=== PATIENT | male | born 1960 | race Caucasian/White ===

== ENCOUNTER 2017-12-22 07:41 | Inpatient (IN) | payer OTHER ==
[~2017-12-22] VITALS: Ht 170.2 cm; Wt 115.8 kg
[2017-12-22] VITALS (15 sets, daily range): BP systolic 105–228; BP diastolic 52–153; PULSE 86–130; RESP 16–38; TEMP 98.1–98.8; O2SAT 94–99
[~2017-12-22 07:41] MED LIST: BP MED; IBUP600T26 PO; LORTA5 PO
--- NOTE | 2017-12-22 07:56 | PD ---
HPI Chief Complaint: Numbness/Tingling Time Seen by Provider: 07:50 Travel History International Travel<30 days: No Contact w/Intl Traveler<30days: No History of Present Illness HPI 57yo M with PMH of HTN and HLD presents to the ED with c/o left lower extremity weakness and left arm and leg numbness since 7am today. Said he woke up to go to the bathroom at 5am and everything was normal. He then woke up at 7am and had the symptoms. Denies any fever, chest pain, sob, n/v, abdominal pain, previous stroke. PFSH Past Medical History Diminished Hearing: No Hypertension: Yes Ulcer: Yes Past Surgical History Cholecystectomy: Yes Tonsillectomy: Yes Other Surgery: Yes (CYST REMOVED FROM BACK) Social History Alcohol Use: No Tobacco Use: No Substance Use: No Allergies-Medications (Allergen,Severity, Reaction): Coded Allergies: No Known Allergies (Verified Allergy, Unknown, 12/22/17) Reported Meds & Prescriptions Reported Meds & Active Scripts Active Reported Losartan-Hydrochlorothiazide 100-25 Mg Tab 1 Tab PO DAILY Simvastatin 80 Mg Tab 80 Mg PO DAILY Ventolin Hfa 18 GM Inh (Albuterol Sulfate) 90 Mcg/Act Aer 2 Puff INH Q4-6H PRN Advair Diskus Inh (Fluticasone-Salmeterol Inh) 250-50 Mcg/Blist Aer 1 Puff INH BID Rinse mouth after use. Clonidine (Clonidine HCl) 0.1 Mg Tab 0.1 Mg PO BID Fenofibrate 160 Mg Tab 160 Mg PO DAILY Atenolol 100 Mg Tab 100 Mg PO DAILY Review of Systems Except as stated in HPI: all other systems reviewed are Neg Physical Exam Narrative GENERAL: 57yo M in mild distress. SKIN: Focused skin assessment warm/dry. HEAD: Atraumatic. Normocephalic. EYES: Pupils equal and round. No scleral icterus. No injection or drainage. ENT: No nasal bleeding or discharge. Mucous membranes pink and moist. NECK: Trachea midline. No JVD. CARDIOVASCULAR: Regular rate and rhythm. No murmur appreciated. RESPIRATORY: No accessory muscle use. Clear to auscultation. Breath sounds equal bilaterally. GASTROINTESTINAL: Abdomen soft, non-tender, nondistended. MUSCULOSKELETAL: No obvious deformities. No clubbing. No cyanosis. No edema. NEUROLOGICAL: Awake and alert. No obvious cranial nerve deficits. +Drift left lower extremity. +Decreased sensation in left upper and lower extremity. + Ataxia in left limb. NIH stroke scale of 3. PSYCHIATRIC: Appropriate mood and affect; insight and judgment normal. Data Data Last Documented VS Vital Signs Date Time Temp Pulse Resp B/P (MAP) Pulse Ox O2 Delivery O2 Flow Rate FiO2 12/22/17 08:25 119 16 199/107 (137) 98 Room Air 12/22/17 08:[address] Brain W/O Iv Contrast(Rout) (12/22/17 ) Prothrombin Time / Inr (Pt) (12/22/17 07:50) Act Partial Throm Time (Ptt) (12/22/17 07:50) Complete Blood Count With Diff (12/22/17 07:50) Basic Metabolic Panel (Bmp) (12/22/17 07:50) Blood Glucose (12/22/17 07:50) Nicardipine Inj (Cardene Inj) (12/22/17 08:00) Admit Order (Ed Use Only) (12/22/17 08:28) Consult Neurosurgery (12/22/17 ) Levetiracetam Inj (Keppra Inj) (12/22/17 08:30) Labs Laboratory Tests Test 12/22/17 07:50 12/22/17 07:58 White Blood Count 6.8 TH/MM3 Red Blood Count 4.95 MIL/MM3 Hemoglobin 14.7 GM/DL Hematocrit 44.4 % Mean Corpuscular Volume 89.7 FL Mean Corpuscular Hemoglobin 29.7 PG Mean Corpuscular Hemoglobin Concent 33.1 % Red Cell Distribution Width 11.4 % Platelet Count 298 TH/MM3 Mean Platelet Volume 8.8 FL Neutrophils (%) (Auto) 55.5 % Lymphocytes (%) (Auto) 26.4 % Monocytes (%) (Auto) 12.8 % Eosinophils (%) (Auto) 4.6 % Basophils (%) (Auto) 0.7 % Neutrophils # (Auto) 3.8 TH/MM3 Lymphocytes # (Auto) 1.8 TH/MM3 Monocytes # (Auto) 0.9 TH/MM3 Eosinophils # (Auto) 0.3 TH/MM3 Basophils # (Auto) 0.0 TH/MM3 CBC Comment DIFF FINAL Differential Comment Prothrombin Time 10.1 SEC Prothromb Time International Ratio 1.0 RATIO Activated Partial Thromboplast Time 22.2 SEC Blood Urea Nitrogen 13 MG/DL Creatinine 1.00 MG/DL Random Glucose 103 MG/DL Calcium Level 9.3 MG/DL Sodium Level 138 MEQ/L Potassium Level 4.0 MEQ/L Chloride Level 103 MEQ/L Carbon Dioxide Level 28.1 MEQ/L Anion Gap 7 MEQ/L Estimat Glomerular Filtration Rate 77 ML/MIN Troponin I LESS THAN 0.02 NG/ML Ethyl Alcohol Level LESS THAN 3 MG/DL MDM Medical Decision Making Medical Screen Exam Complete: Yes Emergency Medical Condition: Yes Differential Diagnosis Stroke alert vs. hypertensive emergency vs. ICH Narrative Course 57yo M with left leg weakness and left arm and leg numbness. Last normal at 5am. Stroke alert was called. Pt's blood pressure is markedly elevated. Nicardipine drip ordered. CT brain showed small area of low attenuation in the right parietal lobe may be acute infarction with focal 6mm area of hemorrhage. No significant mass effect or midline shift. Labs reviewed, no leukocytosis. BMP unremarkable. I discussed with neurologist Dr. Oh and agree that TPA is contraindicated since pt has hemorrhage. Recommend MRI and MRA as well as admit to ICU. Neurosurgeon was call but Dr. Franks is currently in surgery. Consult place. I did give pt keppra for seizure prophylaxis. Discussed with Dr. Lynn who recommends transferring pt to [facility]. Critical Care Narrative Aggregate critical care time was 50 minutes. Time to perform other separately billable procedures was not included in the critical care time. My time did not include minutes spent treating any other patients simultaneously or on activities that did not directly contribute to the patient's treatment. The services I provided to this patient were to treat and/or prevent clinically significant deterioration that could result in: cardiovascular collapse or . I provided critical care services requiring my management, as noted below: Chart data review, documentation time, medication orders and management, vital sign assessments/reviewing monitor data, ordering and reviewing lab tests, ordering and interpreting/reviewing x-rays and diagnostic studies, care of the patient and discussion of the patient with the admitting physicians. Diagnosis Primary Impression: ICH (intracerebral hemorrhage) Qualified Codes: I61.9 - Nontraumatic intracerebral hemorrhage, unspecified Admitting Information Admitting Physician Requests: Admit Noemy العلي DO Dec 22, 2017 07:56
[2017-12-22 08:00] LABS: AUTOMATED NEUTROPHIL # 3.8 TH/MM3 (1.8-7.7); BASOPHIL % 0.7 % (0.0-2.0); EOSINOPHIL # 0.3 TH/MM3 (0-0.4); EOSINOPHIL % 4.6 % (0.0-4.0); HEMATOCRIT 44.4 % (39.0-51.0); HEMOGLOBIN 14.7 GM/DL (13.0-17.0); LYMPH % 26.4 % (9.0-44.0); LYMPHOCYTE # 1.8 TH/MM3 (1.0-4.8); MEAN CELL VOLUME 89.7 FL (80.0-100.0); MEAN CORPUSCULAR HEMOGLOBIN 29.7 PG (27.0-34.0); MEAN CORPUSCULAR HGB CONC 33.1 % (32.0-36.0); MEAN PLATELET VOLUME 8.8 FL (7.0-11.0); MONO % 12.8 % (0.0-8.0); MONOCYTE # 0.9 TH/MM3 (0-0.9); NEUT % 55.5 % (16.0-70.0); PLATELET COUNT 298 TH/MM3 (150-450); RED BLOOD COUNT 4.95 MIL/MM3 (4.50-5.90); RED CELL DISTRIBUTION WIDTH 11.4 % (11.6-17.2); WHITE BLOOD COUNT 6.8 TH/MM3 (4.0-11.0)
[2017-12-22] MEDS ORDERED: niCARdipine INJ 25 MG in SODIUM CHLOR 0.9% 250 ML INJ 240 ML IV ONE (08:00)
--- NOTE | 2017-12-22 08:06 | RADRPT ---
EXAM DATE/TIME: 12/22/2017 07:52 [facility] COMPARISON: No previous studies available for comparison. INDICATIONS : Stroke alert. Left upper and lower extremity numbness since this morning. RADIATION DOSE: 59.65 CTDIvol (mGy) This report was called by Annie to العلي at 8: 03am MEDICAL HISTORY : None SURGICAL HISTORY : None. ENCOUNTER: Initial ACUITY: 1 day PAIN SCALE: 0/10 LOCATION: Bilateral cranial TECHNIQUE: Multiple contiguous axial images were obtained of the head. Using automated exposure control and adj ustment of the mA and/or kV according to patient size, radiation dose was kept as low as reasonably a chievable to obtain optimal diagnostic quality images. DICOM format image data is available electro nically for review and comparison. FINDINGS: CEREBRUM: There is a small area of low attenuation in the right parietal lobe with a small punctate area of hem orrhage measuring 6 mm. No significant mass effect or midline shift. The ventricles are normal for ag e. No evidence of midline shift or mass lesion. No extra-axial fluid collections are seen. POSTERIOR FOSSA: The cerebellum and brainstem are intact. The 4th ventricle is midline. The cerebellopontine angle i s unremarkable. EXTRACRANIAL: The visualized portion of the orbits is intact. SKULL: The calvaria is intact. No evidence of skull fracture. CONCLUSION: Small area of low attenuation in the right parietal lobe may be acute infarction with focal 6 mm area of hemorrhage. No significant mass effect or midline shift. Russel Valencia MD on December 22, 2017 at 8:01 Board Certified Radiologist. This report was verified electronically.
[2017-12-22 08:09] LABS: CALCIUM 9.3 MG/DL (8.5-10.1)
[2017-12-22 08:10] LABS: BICARBONATE 28.1 MEQ/L (21.0-32.0)
[2017-12-22 08:12] LABS: PROTHROMBIN TIME - PATIENT 10.1 SEC (9.8-11.6)
[2017-12-22] MEDS ORDERED: SODIUM CHLORIDE 0.9% FLUSH 10 ML FLUSH IV FLUSH PRN (08:30)
[2017-12-22] MEDS ORDERED: CHLORHEXIDINE GLUCONATE 2 % 1 PACK (2 CLOTHS) TOP PRN (08:30)
[2017-12-22] MEDS ORDERED: ONDANSETRON HCL 4 MG/2 ML VIAL IV PUSH PRN (08:30)
[2017-12-22] MEDS ORDERED: BISACODYL 10 MG SUPP RECTAL PRN (08:30)
[2017-12-22] MEDS ORDERED: MAGNESIUM HYDROXIDE SUSP 30 ML CUP PO PRN (08:30)
[2017-12-22] MEDS ORDERED: LACTULOSE SYRUP 20 GM/30 ML CUP PO PRN (08:30)
[2017-12-22] MEDS ORDERED: ACETAMINOPHEN 325 MG TAB PO PRN (08:30)
[2017-12-22] MEDS ORDERED: MISCELLANEOUS NURSING INFORMATION XX SCH (08:30)
[2017-12-22] MEDS ORDERED: RESP: ALBUTEROL 2.5 MG/IPRATROPIUM 0.5 MG NEB (PRN) INH (08:30)
[2017-12-22] MEDS ORDERED: SENNOSIDES 8.6 MG TAB PO PRN (08:30)
[2017-12-22] MEDS ORDERED: levETIRAcetam INJ 100 ML IV ONE (08:30)
[2017-12-22] MEDS ORDERED: DEXTROSE 50% IN WATER 50 ML VIAL(D50) IV PUSH PRN (09:15)
[2017-12-22] MEDS ORDERED: GLUCAGON 1 MG/ML VIAL OTHER PRN (09:15)
--- NOTE | 2017-12-22 09:16 | PD.CONS ---
HPI Service neurosurgery Consult Requested By Dr Lynn Reason for Consult ICH Primary Care Physician Jame Connor MD History of Present Illness This is a 57 yo male with history of arterial hypertension that presented to [facility] with difficulty with ambulation and left-sided weakness . He also has history of hyperlipidemia. He reports that he woke up to go to the bathroom at 5am and everything was normal. He then woke up at 7am and had left- sided weakness He has a past medical history of hypertension for approximately 10 years, patient on multiple antihypertensive meds available report from - Clonidine , and other meds which he ran out of and did not refill. In addition he takes Losartan and Simvastatin. The patient relates that he took his losartan at approximately 5 AM. He was very hypertensive this morning, with a BP of 228/153 , and was started on a Nicardipine infusion. CT brain noted acute infarction with a 6 mm focal area of hemorrhage without midline shift or mass effect right parietal lobe area. Dr. Oh was notified per ED physician Dr. العلي, Debrara bolus was initiated for seizure prophylaxis. He denies any nauseous or vomiting. No seizure activity. No tongue biting. No incontinence of stool or urine. No tonic-clonic movement seen. Neurosurgical consultation was requested Review of Systems Constitutional: DENIES: Diaphoretic episodes, Fatigue, Fever, Weight gain, Weight loss, Chills, Dizziness, Change in appetite, Night Sweats Endocrine: DENIES: Heat/cold intolerance, Polydipsia, Polyuria, Polyphagia Eyes: DENIES: Blurred vision, Diplopia, Eye inflammation, Eye pain, Vision loss , Photosensitivity, Double Vision Ears, nose, mouth, throat: DENIES: Tinnitus, Hearing loss, Vertigo, Nasal discharge, Oral lesions, Throat pain, Hoarseness, Ear Pain, Running Nose, Epistaxis, Sinus Pain, Toothache, Odynophagia Respiratory: DENIES: Apneas, Cough, Snoring, Wheezing, Hemoptysis, Sputum production, Shortness of breath Cardiovascular: DENIES: Chest pain, Palpitations, Syncope, Dyspnea on Exertion , PND, Lower Extremity Edema, Orthopnea, Claudication Gastrointestinal: DENIES: Abdominal pain, Black stools, Bloody stools, Constipation, Diarrhea, Nausea, Vomiting, Difficulty Swallowing, Anorexia Genitourinary: DENIES: Sexual dysfunction, Urinary frequency, Urinary incontinence, Urgency, Hematuria, Dysuria, Nocturia, Penile Discharge, Testicular Pain, Testicular Swelling Musculoskeletal: DENIES: Joint pain, Muscle aches, Stiffness, Joint Swelling, Back pain, Neck pain Integumentary: DENIES: Abnormal pigmentation, Nail changes, Pruritus, Rash Hematologic/lymphatic: DENIES: Bruising, Lymphadenopathy Neurologic: COMPLAINS OF: Headache, Localized weakness, DENIES: Abnormal gait, Paresthesias, Seizures, Speech Problems, Tremor, Poor Balance Psychiatric: DENIES: Anxiety, Confusion, Mood changes, Depression, Hallucinations, Agitation, Suicidal Ideation, Homicidal Ideation, Delusions Past Family Social History Allergies: Coded Allergies: No Known Allergies (Verified Allergy, Unknown, 12/22/17) Past Medical History Hypertension: Yes approximately 10 years Ulcer: Yes Past Surgical History Cholecystectomy: Yes Tonsillectomy: Yes Other Surgery: Yes (CYST REMOVED FROM BACK) Active Ordered Medications Current Medications Nicardipine HCl 25 mg/Sodium Chloride 250 ml @ 0 mls/hr TITRATE ONCE IV Last administered on 12/22/17at 08:23; Start 12/22/17 at 08:00; Stop 12/22/17 at 08:01; Status DC Levetriacetam 100 ml @ 400 mls/hr BOLUS ONCE IV ; Start 12/22/17 at 08:30; Stop 12/22/17 at 08:44; Status DC Sodium Chloride 1,000 ml @ 42 mls/hr [id number] IV Last administered on 12/22/17at 10:00; Start 12/22/17 at 08:28 Sodium Chloride (NS Flush) 2 ml UNSCH PRN IV FLUSH FLUSH AFTER USING IV ACCESS ; Start 12/22/17 at 08:30 Sodium Chloride (NS Flush) 2 ml BID IV FLUSH Last administered on 12/22/17at 13: 14; Start 12/22/17 at 09:00 Acetaminophen (Tylenol) 650 mg Q6H PRN PO PAIN 1-10 AND/OR FEVER >101F; Start 12/22/17 at 08:30 Famotidine (Pepcid Inj) 20 mg Q12HR IV PUSH ; Start 12/22/17 at 10:00 Ondansetron HCl (Zofran Inj) 4 mg Q6H PRN IV PUSH NAUSEA OR VOMITING; Start 12/22/17 at 08:30 Albuterol/ Ipratropium (Duoneb Neb) 1 ampule Q6HR NEB INH ; Start 12/22/17 at 10 :00 Albuterol/ Ipratropium (Duoneb Neb) 1 ampule Q2HR NEB PRN INH WHEEZING; Start 12/22/17 at 08:30 Miscellaneous Information 1 [id number] Last administered on 12/22/17at 08:30; Start 12/22/17 at 08:30 Chlorhexidine Gluconate (Chlorhexidine 2% Cloth) 3 pack Taper DAILY@04 TOP ; Start 12/23/17 at 04:00; Stop 12/19/18 at 03:59 Chlorhexidine Gluconate (Chlorhexidine 2% Cloth) 3 pack UNSCH PRN TOP HYGIENIC CARE; Start 12/22/17 at 08:30 Senna/Docusate Sodium (Kayleigh-Colace) 1 tab BID PO ; Start 12/22/17 at 10:00 Magnesium Hydroxide (Milk Of Magnesia Liq) 30 ml Q12H PRN PO Mild constipation ; Start 12/22/17 at 08:30 Sennosides (Senokot) 17.2 mg Q12H PRN PO Moderate constipation; Start 12/22/17 at 08:30 Bisacodyl (Dulcolax Supp) 10 mg DAILY PRN RECTAL SEVERE CONSITIPATION; Start at 08:30 Lactulose (Lactulose Liq) 30 ml DAILY PRN PO SEVERE CONSITIPATION; Start at 08:30 Dextrose (D50w (Vial) Inj) 50 ml UNSCH PRN IV PUSH HYPOGLYCEMIA-SEE COMMENTS; Start 12/22/17 at 09:15 Glucagon (Glucagon Inj) 1 mg UNSCH PRN OTHER HYPOGLYCEMIA-SEE COMMENTS; Start 12/22/17 at 09:15 Insulin Aspart (NovoLOG SUPPLEMENTAL SCALE) 1 ACHS SLIDING SCALE SQ ; Start 12/22/17 at 12:00 Multivitamins 10 ml/Folic Acid 1 mg/Sodium Chloride 510.2 ml @ 125 mls/hr Q24H IV Last administered on 12/22/17at 13:15; Start 12/22/17 at 11:00; Stop 12/27/17 at 10:59 Thiamine HCl 100 mg/Sodium Chloride 101 ml @ 100 mls/hr Q24H IV Last administered on 12/22/17at 13:14; Start 12/22/17 at 11:00; Stop 12/25/17 at 10:59 Levetriacetam 500 mg/Sodium Chloride 105 ml @ 420 mls/hr Q12HR IV ; Start at 21:00 Gadodiamide (Omniscan Pf Inj) 20 ml STK-MED ONCE IVCONTRAST Last administered on 12/22/17at 12:01; Start 12/22/17 at 12:01; Stop 12/22/17 at 12:02; Status DC Albuterol Sulfate (Proair Hfa Inh) 2 puff Q4H PRN INH SHORTNESS OF BREATH; Start 12/22/17 at 13:15 Atenolol (Tenormin) 100 mg DAILY PO ; Start 12/22/17 at 13:15 Clonidine (Catapres) 0.1 mg BID PO ; Start 12/22/17 at 13:15 Non-Formulary Medication 160 mg DAILY PO ; Start 12/22/17 at 13:15; Status UNV Budesonide/ Formoterol Fumarate (Symbicort 160-4.5 Mcg Inh) 2 puff BID INH ; Start 12/22/17 at 21:00 Non-Formulary Medication 1 tab DAILY PO ; Start 12/22/17 at 13:15; Status UNV Atorvastatin Calcium (Lipitor) 40 mg DAILY PO ; Start 12/22/17 at 14:30 Nicardipine HCl 25 mg/Sodium Chloride 250 ml @ 50 mls/hr TITRATE PRN IV Blood pressure management; Start 12/22/17 at 13:15 Family History Family history was reviewed and was noncontributory to this event Social History Alcohol Use: Drinks [place] [employer] (whiskey) 7 glasses 3 times a week Tobacco Use: Chews tobacco > 48 years, quit smoking tobacco > 30 years ago Substance Use: THC/ cannabis > 47 years Patient is Physical Exam Vital Signs Vital Signs Date Time Temp Pulse Resp B/P (MAP) Pulse Ox O2 Delivery O2 Flow Rate FiO2 12/22/17 08:43 120 195/97 (129) 2/4/18 08:25 119 16 199/107 (137) 98 Room Air 12/22/17 08:24 98.8 110 18 228/153 (178) 99 Room Air 12/22/17 08:23 110 199/107 12/22/17 08:16 98 Room Air Physical Exam The patient is alert, awake and oriented to time, place and person. Speech is fluent. Cranial nerve examination demonstrates the pupils to be equal, round, and reactive to light. Extra-ocular movements are intact. Facial motor and sensory function are normal and symmetrical. Gross hearing is intact, bilaterally. The uvula is midline and elevates symmetrically with the soft palate. Sternocleidomastoid and trapezius muscles have normal and symmetrical strength. Other cranial nerves are intact. Neck is soft and supple. Cervical spine has a full range of motion in anterior flexion, extension, lateral bending, and rotation without pain. There is no tenderness to palpation to the spinous processes or paraspinal muscles. Muscle testing reveals normal bulk and tone overall without rigidity, spasticity , fasciculations, or atrophy. Muscle strength is 5/5 in all muscle groups of his right and lower extremities with a mild hemiparesis. Sensory examination is intact to light touch and sharp/dull discrimination in both the upper and lower extremities, symmetrically. Deep tendon reflexes are 2+ and symmetrical in the biceps, triceps, and brachioradialis, bilaterally, in the upper extremities. In the lower extremities , the patellar and Achilles are 2+, bilaterally. There is a bilateral plantar flexion response. Hoffmanns sign is negative. There is no clonus or other abnormal reflexes noted. Cerebellar examination is intact to [id number] test, rapid rhythmic alternating motion on the right side, with limited examination on the left. Lungs are clear. No wheezing Heart. Regular rhythm and rate Skin. Warm and dry Laboratory Laboratory Tests Test 12/22/17 07:50 White Blood Count 6.8 Red Blood Count 4.95 Hemoglobin 14.7 Hematocrit 44.4 Mean Corpuscular Volume 89.7 Mean Corpuscular Hemoglobin 29.7 Mean Corpuscular Hemoglobin Concent 33.1 Red Cell Distribution Width 11.4 Platelet Count 298 Mean Platelet Volume 8.8 Neutrophils (%) (Auto) 55.5 Lymphocytes (%) (Auto) 26.4 Monocytes (%) (Auto) 12.8 Eosinophils (%) (Auto) 4.6 Basophils (%) (Auto) 0.7 Neutrophils # (Auto) 3.8 Lymphocytes # (Auto) 1.8 Monocytes # (Auto) 0.9 Eosinophils # (Auto) 0.3 Basophils # (Auto) 0.0 CBC Comment DIFF FINAL Differential Comment Prothrombin Time 10.1 Prothromb Time International Ratio 1.0 Activated Partial Thromboplast Time 22.2 Blood Urea Nitrogen 13 Creatinine 1.00 Random Glucose 103 Calcium Level 9.3 Sodium Level 138 Potassium Level 4.0 Chloride Level 103 Carbon Dioxide Level 28.1 Anion Gap 7 Estimat Glomerular Filtration Rate 77 Result Diagram: 12/22/17 0750 12/22/17 0750 Imaging Last 48 hours Impressions Head Magnetic Resonance Angiography 12/22/17 1046 Signed Impressions: Service Date/Time: Friday, December 22, 2017 11:39 - CONCLUSION: 1. Decreased perfusion right M2 segment suggesting thrombus versus artifact. CTA may be warranted. Russel Valencia MD Brain MRI 12/22/17 1046 Signed Impressions: Service Date/Time: Friday, December 22, 2017 11:39 - CONCLUSION: 1. Small acute infarction along the posterior insular cortex. 2. Small amount of hemorrhage. 3. No midline shift. Russel Valencia MD Head CT 12/22/17 0000 Signed Impressions: Service Date/Time: Friday, December 22, 2017 07:52 - CONCLUSION: Small area of low attenuation in the right parietal lobe may be acute infarction with focal 6 mm area of hemorrhage. No significant mass effect or midline shift. Russel Valencia MD Attending Statement Neuro. neuro checks in a serial fashion.. An MRI and an MR angiography had been ordered. Observe for any signs of neurological deterioration Uncontrolled hypertension. I have order to start the patient in a Cardene drip. Monitor and treat with antihypertensives Consultation to a neurologist placed Pulmonary. aggressive pulmonary toilette, nasotracheal suction, and breathing treatments with nebulizers. Daily PT and OT Nutrition. Tolerating Oral diet Renal. Continue to monitor closely urine output, BUN and creatinine Endocrine. Monitor serial Acu checks and SSI as needed in detail ID monitor for signs of infection Protonix for stress ulcer prophylaxis Jeremías hose and SCD's for DVT prophylaxis Further recommendations will be provided depending on the patient's clinical evaluation and follow up studies. Samson Franks MD Dec 22, 2017 09:16
[2017-12-22] MEDS ORDERED: FENO160T PO (09:31)
[2017-12-22] MEDS ORDERED: LOSA100T2 PO (09:31)
[2017-12-22] MEDS ORDERED: CLON0.1T PO (09:31)
[2017-12-22] MEDS ORDERED: ADVA250A INH (09:31)
[2017-12-22] MEDS ORDERED: SIMV80TA PO (09:31)
[2017-12-22] MEDS ORDERED: ATEN100T PO (09:31)
[2017-12-22] MEDS ORDERED: VENTAER INH (09:31)
[2017-12-22] MEDS: SODIUM CHLOR 0.9% 1000 ML INJ 1,000 ML IV SCH (10:00)
--- NOTE | 2017-12-22 10:04 | HHI.HP ---
HPI Service Critical Care Medicine Primary Care Physician Jame Connor MD Admission Diagnosis Right parietal infarct and hemorrhage Diagnosis: Travel History International Travel<30 Days: No Contact w/Intl Traveler <30 Da: No Traveled to Known Affected Are: No History of Present Illness HPI This is a 57 yo male that presented to [facility] with difficulty with ambulation and left-sided weakness . The patient notably has a PMH of HTN and HLD . Alert was initiated. He said he woke up to go to the bathroom at 5am and everything was normal. He then woke up at 7am and had the symptoms. Of note the patient has had a past medical history of hypertension for approximately 10 years, patient on multiple antihypertensive meds available report from - Clonidine, and other meds which he ran out of and did not refill ,currently taking Losartan and Simvastatin. The patient relates that he took his losartan at approximately 5 AM. The patient presented with a BP of 228 /153 , and was started on a Nicardipine infusion. Upon entering the ED the patient's BP was noted to b195/97 and on nicardipine 9mg/hr. laboratory and imaging studies were performed. CT brain noted acute infarction with a 6 mm focal area of hemorrhage without midline shift or mass effect right parietal lobe area. Dr. Oh was notified per ED physician Ivett Carlisle bolus was initiated for seizure prophylaxis. Of note the patient's social history includes marijuana use greater than 47 years, and alcohol usage 7 glasses of whiskey approximately 3 times a week . Critical care medicine has been consulted. History PFSH Past Medical History Diminished Hearing: No Hypertension: Yes approximately 10 years Ulcer: Yes Past Surgical History Cholecystectomy: Yes Tonsillectomy: Yes Other Surgery: Yes (CYST REMOVED FROM BACK) Social History Alcohol Use: Drinks [place] Mist (whiskey) 7 glasses 3 times a week Tobacco Use: Chews tobacco > 48 years, quit smoking tobacco > 30 years ago Substance Use: THC/ cannabis > 47 years Patient is 10 years 3 children Allergies-Medications Allergies-Medications (Allergen,Severity, Reaction): Coded Allergies: No Known Allergies (Verified Adverse Reaction, Unknown, 12/22/17) Reported Meds & Prescriptions Reported Meds & Active Scripts Active ROS Review of Systems Except as stated in HPI: 12 point review of systems done with patient and negative except for pertinent positives mentioned in the above history and physical Physical Exam Vital Signs Vital Signs Date Time Temp Pulse Resp B/P (MAP) Pulse Ox O2 Delivery O2 Flow Rate FiO2 12/22/17 08:43 120 195/97 (129) 12/22/17 08:25 119 16 199/107 (137) 98 Room Air 12/22/17 08:24 98.8 110 18 228/153 (178) 99 Room Air 12/22/17 08:23 110 199/107 12/22/17 08:16 98 Room Air Physical Exam GENERAL: This is an obese critically ill male patient, slightly anxious, alert and oriented answering questions appropriately SKIN: Warm and dry. HEAD: Atraumatic. Normocephalic. EYES: Pupils equal and round. No scleral icterus. No injection or drainage. ENT: No nasal bleeding or discharge. Mucous membranes pink and moist. NECK: Trachea midline. No JVD. CARDIOVASCULAR: Tachycardic rate, regular rhythm. RESPIRATORY: No accessory muscle use. Clear to auscultation. Breath sounds equal bilaterally. GASTROINTESTINAL: Abdomen soft, non-tender, slightly protuberant, nondistended. No guarding. Normoactive bowel sounds MUSCULOSKELETAL: Extremities without clubbing, cyanosis, or edema. No obvious deformities. NEUROLOGICAL: Awake and alert. RASS 0. Follows commands in all 4 extremities. Notably left upper and lower extremity motor strength 4/5. Notably decreased sensation reported left upper and left lower extremity Laboratory Laboratory Tests Test 12/22/17 07:50 White Blood Count 6.8 Red Blood Count 4.95 Hemoglobin 14.7 Hematocrit 44.4 Mean Corpuscular Volume 89.7 Mean Corpuscular Hemoglobin 29.7 Mean Corpuscular Hemoglobin Concent 33.1 Red Cell Distribution Width 11.4 Platelet Count 298 Mean Platelet Volume 8.8 Neutrophils (%) (Auto) 55.5 Lymphocytes (%) (Auto) 26.4 Monocytes (%) (Auto) 12.8 Eosinophils (%) (Auto) 4.6 Basophils (%) (Auto) 0.7 Neutrophils # (Auto) 3.8 Lymphocytes # (Auto) 1.8 Monocytes # (Auto) 0.9 Eosinophils # (Auto) 0.3 Basophils # (Auto) 0.0 CBC Comment DIFF FINAL Differential Comment Prothrombin Time 10.1 Prothromb Time International Ratio 1.0 Activated Partial Thromboplast Time 22.2 Blood Urea Nitrogen 13 Creatinine 1.00 Random Glucose 103 Calcium Level 9.3 Sodium Level 138 Potassium Level 4.0 Chloride Level 103 Carbon Dioxide Level 28.1 Anion Gap 7 Estimat Glomerular Filtration Rate 77 Result Diagram: 12/22/17 0750 12/22/17 0750 Imaging Last Impressions Head CT 12/22/17 0000 Signed Impressions: Service Date/Time: Friday, December 22, 2017 07:52 - CONCLUSION: Small area of low attenuation in the right parietal lobe may be acute infarction with focal 6 mm area of hemorrhage. No significant mass effect or midline shift. Russel Valencia MD Septic Shock Reassessment Septic shock perfusion: reassessment completed Caprini VTE Risk Assessment Caprini VTE Risk Assessment: No/Low Risk (score <= 1) VTE Pharm Contraindication: Hemorrhage Caprini Risk Assessment Model Point Value = 1 Point Value = 2 Point Value = 3 Point Value = 5 Age 41-60 Minor surgery BMI > 25 kg/m2 Swollen legs Varicose veins or History of unexplained or recurrent spontaneous Oral contraceptives or hormone replacement Sepsis (< 1 month) Serious lung disease, including pneumonia (< 1 month) Abnormal pulmonary function Acute myocardial infarction Congestive heart failure (< 1 month) History of inflammatory bowel disease Medical patient at bed rest Age 61-74 Arthroscopic surgery Major open surgery (> 45 min) Laparoscopic surgery (> 45 min) Malignancy Confined to bed (> 72 hours) Immobilizing plaster cast Central venous access Age >= 75 History of VTE Family history of VTE Factor V Leiden Prothrombin [id number] Lupus anticoagulant Anticardiolipin antibodies Elevated serum homocysteine Heparin-induced thrombocytopenia Other congenital or acquired thrombophilia Stroke (< 1 month) Elective arthroplasty Hip, pelvis, or leg fracture Acute spinal cord injury (< 1 month) Prophylaxis Regimen Total Risk Factor Score Risk Level Prophylaxis Regimen 0-1 Low Early ambulation 2 Moderate Order ONE of the following: *Sequential Compression Device (SCD) *Heparin 5000 units SQ BID 3-4 Higher Order ONE of the following medications: *Heparin 5000 units SQ TID *Enoxaparin/Lovenox 40 mg SQ daily (WT < 150 kg, CrCl > 30 mL/min) *Enoxaparin/Lovenox 30 mg SQ daily (WT < 150 kg, CrCl > 10-29 mL/min) *Enoxaparin/Lovenox 30 mg SQ BID (WT < 150 kg, CrCl > 30 mL/min) AND/OR *Sequential Compression Device (SCD) 5 or more Highest Order ONE of the following medications: *Heparin 5000 units SQ TID (Preferred with Epidurals) *Enoxaparin/Lovenox 40 mg SQ daily (WT < 150 kg, CrCl > 30 mL/min) *Enoxaparin/Lovenox 30 mg SQ daily (WT < 150 kg, CrCl > 10-29 mL/min) *Enoxaparin/Lovenox 30 mg SQ BID (WT < 150 kg, CrCl > 30 mL/min) AND *Sequential Compression Device (SCD) Assessment and Plan Assessment and Plan Plan by systems: Neurologic: Acute infarction right parietal lobe with 6 mm hemorrhage EtOH abuse THC use/abuse Neurochecks per ICU protocol Neurology consulted- Dr. Oh Seizure precautions Keppra 1 Gm bolused in ED Keppra 500 mg twice a day Neurosurgery consulted - Dr. Franks follow-up recommendations / CT brain -possibly acute infarction with 6 mm focal area of hemorrhage, right parietal lobe. No MLS, no mass effect Repeat CT brain in 12 hrs F/U results Thiamine and folate daily Consider CIWA post neuroevaluation -concern for possible alcohol withdrawal Obtain urine drug screen MRI/MRA brain pending per Dr. العلي- F/U results Respiratory: COPD Tobaccoism Patient currently on room air O2 saturation 97% Duo nebs every 6 hours and every 2 hours when necessary Obtain home meds from patient, states on an inhaler Patient chews tobacco greater than 48 years, quit smoking approximately 30 years ago Cardiovascular: Hypertensive crisis Rebound hypertension-most likely secondary to abrupt discontinuation of clonidine History of hypertension Hyperlipidemia Sinus tachycardia Maintain systolic blood pressure 140-160mmHg Patient currently on nicardipine infusion Obtain home medication records, and reinstitute home meds-patient on clonidine, losartan and simvastatin Initiate clonidine dosing for rebound hypertension F/U troponin levels Renal: No Asher indicated -- Strict I/Os FEN/GI: Maintain nothing by mouth with exception of meds Monitor BMP Famotidine for GI prophylaxis Zofran for nausea Bowel regimen Heme/ID: Monitor CBC Obtain cultures if indicated INR 1.0 Endocrine: Glucose monitoring per ICU protocol -- SSI Prophylaxis: GI Prophylaxis Famotidine BID DVT Prophylaxis -- SCDs no chemical prophylaxis at this time Lines: Peripheral IVs 2. Central line if indicated. Dispo: my billing statement This patient remains critically ill with one or more organ systems which are or may become a threat to life. I have spent in excess of 60 minutes discontinuously in the care and management of this patient. This time is exclusive of procedures, and includes, but is not limited to, evaluation of the patient, review of the medical record, discussions with family, consultants, nursing staff, or respiratory therapy, and documentation in the medical record. Discussed with and patient at bedside, patient will be transferred to [facility], for further evaluation and treatment. All questions answered. Code Status Full Discussed Condition With Dr. العلي, patient, and patient's at bedside. Lenore Lynn MD Dec 22, 2017 10:04
[2017-12-22] MEDS: niCARdipine INJ 25 MG in SODIUM CHLOR 0.9% 250 ML INJ 240 ML IV PRN ×3 (10:15→15:00)
[2017-12-22] MEDS: INSULIN ASPART SUPPLEMENTAL SCALE SQ SCH ×3 (12:00→21:00)
[2017-12-22] MEDS ORDERED: GADODIAMIDE PF 287 MG/ML 20 ML VIAL (for RAD MRI) IVCONTRAST ONE (12:01)
--- NOTE | 2017-12-22 12:05 | RADRPT ---
EXAM DATE/TIME: 12/22/2017 11:39 [facility] COMPARISON: No previous studies available for comparison. INDICATIONS : Left sided weakness. MEDICAL HISTORY : Chronic obstructive pulmonary disease. Hypertension. Arthritis. DDD SURGICAL HISTORY : Tonsillectomy. Cholecystectomy. ENCOUNTER: Initial ACUITY: 1 day PAIN SCORE: 0/10 LOCATION: cranial Please note a normal MRA of the brain does not entirely exclude the possibility of a small aneurysm, nor the possibility of distal intracranial vessel disease. TECHNIQUE: 3D time of flight MRA was performed. Source images, multiplanar STS MIP, and 3D volume MIP reconstru ctions were reviewed. FINDINGS: There is excellent visualization of the major intracranial arteries out to the second-order branch ve ssels. There is no evidence for aneurysm, vessel truncation or stenosis, and no evidence for vascula r malformation. Vertebrobasilar junction normal. Hypoplastic right A1 segment. There is an anterior c ommunicating artery. The there are some intraluminal irregularities in the nodules or arteries. There is decreased perfusion of the right M2 segment suggesting possible thrombus. Very minimal changes ar e also seen in the left but to a lesser degree CONCLUSION: 1. Decreased perfusion right M2 segment suggesting thrombus versus artifact. CTA may be warranted. Russel Valencia MD on December 22, 2017 at 11:59 Board Certified Radiologist. This report was verified electronically.
--- NOTE | 2017-12-22 12:23 | RADRPT ---
EXAM DATE/TIME: 12/22/2017 11:39 [facility] COMPARISON: CT BRAIN W/O CONTRAST, December 22, 2017, 7:52. INDICATIONS : Left sided weakness. CONTRAST: 20 cc Omniscan (gadodiamide) IV MEDICAL HISTORY : Chronic obstructive pulmonary disease. Hypertension. Arthritis. DDD SURGICAL HISTORY : Cholecystectomy. Tonsillectomy. ENCOUNTER: Initial ACUITY: 1 day PAIN SCORE: 0/10 LOCATION: cranial TECHNIQUE: Multiplanar, multisequence MRI of the brain was performed both prior to and following the administrat ion of paramagnetic contrast. FINDINGS: CEREBRUM: Abnormal T2 signal abnormality along the posterior right insular cortex with associated hemorrhage. T he ventricles are normal for age. No evidence of midline shift or mass lesion. No extraaxial fluid collections are seen. The pituitary gland and suprasellar cistern are normal in configuration. WHITE MATTER: No significant signal abnormalities are seen in the white matter. POSTERIOR FOSSA: The cerebellum and brainstem are intact. The 4th ventricle is midline. The cerebellopontine angle is unremarkable. The cerebellar tonsils are normal in position. DIFFUSION IMAGING: Right-sided restricted diffusion seen. Consistent with acute infarction. EXTRACRANIAL: The visualized portions of the orbits and paranasal sinuses are unremarkable. POST-CONTRAST: There is enhancement within the infarct CONCLUSION: 1. Small acute infarction along the posterior insular cortex. 2. Small amount of hemorrhage. 3. No midline shift. Russel Valencia MD on December 22, 2017 at 12:18 Board Certified Radiologist. This report was verified electronically.
[2017-12-22] MEDS: THIAMINE INJ 100 MG in SODIUM CHLORIDE 0.9% INJ 100 ML IV SCH (13:14)
[2017-12-22] MEDS: SODIUM CHLORIDE 0.9% FLUSH 10 ML FLUSH IV FLUSH SCH ×2 (13:14→21:00)
[2017-12-22] MEDS ORDERED: ALBUTEROL SULFATE 90 MCG/ACT HFA 8 GM INHALER INH PRN (13:15)
[2017-12-22] MEDS: MULTIVITAMIN INJ 10 ML, FOLIC ACID INJ 1 MG in SODIUM CHLORID 0.9% 500 ML INJ 500 ML IV SCH (13:15)
--- NOTE | 2017-12-22 14:25 | PD.CONS ---
History of Present Illness Service Neurology Consult Requested By er Reason for Consult stroke alert Primary Care Physician Jame Connor MD History of Present Illness 57 yo male that presented to [facility] with difficulty with ambulation and left-sided weakness . Began this am. ct brain showed rt subcortical infarct with ICH. not tpa candidate 2/2 ich. denies head/neck trauma. no hx of stroke/tia/clotting d/o or afib. takes aspirin qd. did run out of his bp meds. currently, feels numbness in left distal arm and leg. History PFSH Past Medical History Diminished Hearing: No Hypertension: Yes approximately 10 years Ulcer: Yes Past Surgical History Cholecystectomy: Yes Tonsillectomy: Yes Other Surgery: Yes (CYST REMOVED FROM BACK) Social History Alcohol Use: Drinks [place] Mist (whiskey) 7 glasses 3 times a week Tobacco Use: Chews tobacco > 48 years, quit smoking tobacco > 30 years ago Substance Use: +MJ Allergies-Medications Allergies-Medications (Allergen,Severity, Reaction): Coded Allergies: No Known Allergies (Verified Adverse Reaction, Unknown, 12/22/17) Reported Meds & Prescriptions Reported Meds & Active Scripts Active ROS Review of Systems Except as stated in HPI: 12 point review of systems done with patient and negative except for pertinent positives mentioned in the above history and physical Review of Systems All other ROS: ROS reviewed as documented in chart Past Family Social History Allergies: Coded Allergies: No Known Allergies (Verified Allergy, Unknown, 12/22/17) Active Ordered Medications Current Medications Medications (Trade) Dose Ordered Sig/Mark Route Start Time Stop Time Status Last Admin Sodium Chloride 1,000 ml @ 42 mls/hr [id number] IV 12/22/17 08:28 12/22/17 10:00 (NS Flush) 2 ml UNSCH PRN IV FLUSH 12/22/17 08:30 (NS Flush) 2 ml BID IV FLUSH 12/22/17 09:00 12/22/17 13:14 (Tylenol) 650 mg Q6H PRN PO 12/22/17 08:30 (Pepcid Inj) 20 mg Q12HR IV PUSH 12/22/17 10:00 (Zofran Inj) 4 mg Q6H PRN IV PUSH 12/22/17 08:30 (Duoneb Neb) 1 ampule Q6HR NEB INH 12/22/17 10:00 (Duoneb Neb) 1 ampule Q2HR NEB PRN INH 12/22/17 08:30 Miscellaneous Information 1 Q361D XX 12/22/17 08:30 12/22/17 08:30 (Chlorhexidine 2% Cloth) 3 pack Taper DAILY@04 TOP 12/23/17 04:00 12/19/18 03:59 (Chlorhexidine 2% Cloth) 3 pack UNSCH PRN TOP 12/22/17 08:30 (Kayleigh-Colace) 1 tab BID PO 12/22/17 10:00 (Milk Of Magnesia Liq) 30 ml Q12H PRN PO 12/22/17 08:30 (Senokot) 17.2 mg Q12H PRN PO 12/22/17 08:30 (Dulcolax Supp) 10 mg DAILY PRN RECTAL 12/22/17 08:30 (Lactulose Liq) 30 ml DAILY PRN PO 12/22/17 08:30 (D50w (Vial) Inj) 50 ml UNSCH PRN IV PUSH 12/22/17 09:15 (Glucagon Inj) 1 mg UNSCH PRN OTHER 12/22/17 09:15 (NovoLOG SUPPLEMENTAL SCALE) 1 ACHS SLIDING SCALE SQ 12/22/17 12:00 Multivitamins 10 ml/Folic Acid 1 mg/Sodium Chloride 510.2 ml @ 125 mls/hr Q24H IV 12/22/17 11:00 12/27/17 10:59 12/22/17 13:15 Thiamine HCl 100 mg/Sodium Chloride 101 ml @ 100 mls/hr Q24H IV 12/22/17 11:00 12/25/17 10:59 12/22/17 13:14 Levetriacetam 500 mg/Sodium Chloride 105 ml @ 420 mls/hr Q12HR IV 12/22/17 21:00 (Proair Hfa Inh) 2 puff Q4H PRN INH 12/22/17 13:15 (Tenormin) 100 mg DAILY PO 12/22/17 13:15 (Catapres) 0.1 mg BID PO 12/22/17 13:15 Non-Formulary Medication 160 mg DAILY PO 12/22/17 13:15 UNV Non-Formulary Medication 1 puff BID INH 12/22/17 13:15 UNV Non-Formulary Medication 1 tab DAILY PO 12/22/17 13:15 UNV Non-Formulary Medication 80 mg DAILY PO 12/22/17 13:15 UNV Nicardipine HCl 25 mg/Sodium Chloride 250 ml @ 50 mls/hr TITRATE PRN IV 12/22/17 13:15 Exam I&O / VS Vital Signs Date Time Temp Pulse Resp B/P (MAP) Pulse Ox O2 Delivery O2 Flow Rate FiO2 12/22/17 12:00 98.2 121 21 129/68 (88) 96 12/22/17 11:00 98.6 19 122/62 (82) 94 12/22/17 10:00 98.3 128 17 132/83 (99) 94 12/22/17 10:00 98.7 122 16 165/87 (113) 99 12/22/17 08:43 120 195/97 (129) 12/22/17 08:25 119 16 199/107 (137) 98 Room Air 12/22/17 08:24 98.8 110 18 228/153 (178) 99 Room Air 12/22/17 08:23 110 199/107 12/22/17 08:16 98 Room Air General: Alert and Oriented, No acute distress Eye: EOMI Respiratory: Non-labored respirations Cardiology: Normal rate Neurologic: Alert, Oriented, Normal DTR's Psychiatric: Cooperative, Appropriate mood & affect Exam Comments ox 3, no aphasia, follows, articulate, eomi, ou 3-2mm, mild reduced left nlf, no drift but slight left ue dystaxia and left le 4/5, mild reduced pin distal left hand, gait not assessed 2/2 fall risk Review/Management Diagnosis/Plan: (1) Acute right MCA stroke ICD Codes: I63.511 - Cerebral infarction due to unspecified occlusion or stenosis of right middle cerebral artery Status: Acute Plan: appears to have infarct with ich component. somewhat unusual to have ich occur this quickly but pt was quite hypertensive at [facility] recs f/u cta's ivf bp <160/100 scd's blood thinners precarious to use with ICH component f/u echo card eval for gigi/loop recorder d/c mj, tobacco use appreciate CCM team (2) HTN (hypertension) ICD Codes: I10 - Essential (primary) hypertension Status: Chronic (3) Chewing tobacco nicotine dependence ICD Codes: F17.220 - Nicotine dependence, chewing tobacco, uncomplicated Status: Chronic Problem Qualifiers (1) HTN (hypertension): Qualified Codes: I10 - Essential (primary) hypertension Vance Oh MD Dec 22, 2017 14:25
[2017-12-22] MEDS: cloNIDine HCL 0.1 MG TAB PO SCH ×3 (14:58→21:52)
[2017-12-22] MEDS: ATORVASTATIN 40 MG TAB PO SCH (14:59)
[2017-12-22] MEDS: LOSARTAN 50 MG TAB PO SCH ×2 (15:00→15:11)
[2017-12-22] MEDS: HYDROCHLOROTHIAZIDE 25 MG TAB PO SCH (15:00)
[2017-12-22] MEDS: FAMOTIDINE 20 MG/2 ML VIAL IV PUSH SCH ×2 (15:01→21:05)
[2017-12-22] MEDS: DOCUSATE SODIUM 50 MG/SENNA 8.6 MG TAB PO SCH ×2 (15:07→21:05)
[2017-12-22] MEDS: RESP: ALBUTEROL 2.5 MG/IPRATROPIUM 0.5 MG NEB (SCH) INH ×2 (16:00→19:36)
[2017-12-22] MEDS: ATENOLOL 100 MG TAB PO SCH (16:29)
[2017-12-22] MEDS: FENOFIBRATE 145 MG TAB PO SCH (16:29)
[2017-12-22] MEDS ORDERED: IOHEXOL 350 MG/ML 10 ML VIAL (for RAD DIAG) IVCONTRAST ONE (18:17)
--- NOTE | 2017-12-22 18:54 | RADRPT ---
EXAM DATE/TIME: 12/22/2017 18:15 [facility] COMPARISON: MRA BRAIN W/O CONTRAST, December 22, 2017, 11:39. MRI BRAIN W & W/O CONTRAST, December 22, 2017, 11 :39. INDICATIONS : Follow up stroke alert;possible right M2 segment thrombus on MRI. IV CONTRAST: 79 cc Omnipaque 350 (iohexol) IV ; Cumulative dose for multiple exams. RADIATION DOSE: 11.0 CTDIvol (mGy) ; Combined studies MEDICAL HISTORY : Hypertension. SURGICAL HISTORY : Cholecystectomy. ENCOUNTER: Initial ACUITY: 1 day PAIN SCALE: 0/10 LOCATION: cranial TECHNIQUE: Volumetric scanning was performed using a multi-row detector CT scanner. The data was post processed with a variety of visualization algorithms including full volume maximum intensity projection, multi -planar sliding thin slab reformation, curved planar reformation, and surface rendering techniques. Using automated exposure control and adjustment of the mA and/or kV according to patient size, radiat ion dose was kept as low as reasonably achievable to obtain optimal diagnostic quality images. DICO M format image data is available electronically for review and comparison. FINDINGS: No significant vascular malformations, vessel truncation or aneurysmal dilatations are seen. There is no evidence for thrombus within right middle cerebral artery and the area of question diminished lexy w on the MR angiography was probably artifactually created. CONCLUSION: Unremarkable study. My Hurd MD on December 22, 2017 at 18:49 Board Certified Radiologist. This report was verified electronically.
--- NOTE | 2017-12-22 18:57 | RADRPT ---
EXAM DATE/TIME: 12/22/2017 18:17 [facility] COMPARISON: CTA BRAIN W 3D RECON, December 22, 2017, 18:15. MRI BRAIN W & W/O CONTRAST, December 22, 2017, 11:3 9. MRA BRAIN W/O CONTRAST, December 22, 2017, 11:39. CT BRAIN W/O CONTRAST, December 22, 2017, 7:52 . INDICATIONS : Follow up stroke; right M2 segment occlusion. IV CONTRAST: 79 cc Omnipaque 350 (iohexol) IV RADIATION DOSE: 11.0 CTDIvol (mGy) ; Combined studies MEDICAL HISTORY : Hypertension. SURGICAL HISTORY : Cholecystectomy. ENCOUNTER: Initial ACUITY: 1 day PAIN SCALE: 0/10 LOCATION: neck Elevated flow velocities and ICA/CCA ratios have been found to correlate with increased degrees of vessel stenosis, calculated as percentage of diameter relative to a normal segment of distal ICA/CCA. TECHNIQUE: Volumetric scanning was performed using a multirow detector CT scanner. The data was post processed with a variety of visualization algorithms including full-volume maximum intensity projection, multip lanar sliding thin-slab reformation, curved-planar reformation, and surface-rendering techniques. Us ing automated exposure control and adjustment of the mA and/or kV according to patient size, radiatio n dose was kept as low as reasonably achievable to obtain optimal diagnostic quality images. DICOM f ormat image data is available electronically for review and comparison. FINDINGS: AORTIC ARCH: There is a three-vessel origin of the great vessels from the aorta. No evidence of ostial narrowing. RIGHT CAROTID: The common carotid artery is intact. The carotid bulb has a normal configuration without ulceration o r narrowing. The internal carotid artery lumen is smooth without stenosis. The external carotid deepti ry is intact. LEFT CAROTID: The common carotid artery is intact. The carotid bulb has a normal configuration without ulceration or narrowing. The internal carotid artery lumen is smooth without stenosis. The external carotid ar андрей is intact. Minimal atherosclerotic plaquing is identified eccentric in appearance involving the carotid bulb. VERTEBRALS: The vertebral arteries have a symmetric diameter. No stenotic lesions are seen. CONCLUSION: Minimal calcified plaque and eccentric involving the left carotid bulb, otherwise unremarkable. My Hurd MD on December 22, 2017 at 18:52 Board Certified Radiologist. This report was verified electronically.
[2017-12-22] MEDS: BUDESONIDE-FORMOTEROL 160/4.5 MCG INHALER INH SCH (21:00)
[2017-12-22] MEDS: levETIRAcetam INJ 500 MG in SODIUM CHLORIDE 0.9% INJ 100 ML IV SCH (21:05)
[2017-12-23] VITALS (13 sets, daily range): BP systolic 111–137; BP diastolic 57–83; PULSE 68–88; RESP 13–22; TEMP 97.8–98.1; O2SAT 93–100
[2017-12-23] MEDS: RESP: ALBUTEROL 2.5 MG/IPRATROPIUM 0.5 MG NEB (SCH) INH ×4 (03:33→21:24)
[2017-12-23] MEDS: CHLORHEXIDINE GLUCONATE 2 % 1 PACK (2 CLOTHS) TOP SCH (03:57)
[2017-12-23 05:32] LABS: HEMATOCRIT 39.8 % (39.0-51.0); MEAN CELL VOLUME 89.5 FL (80.0-100.0); MEAN CORPUSCULAR HEMOGLOBIN 31.5 PG (27.0-34.0); MEAN CORPUSCULAR HGB CONC 35.2 % (32.0-36.0); MEAN PLATELET VOLUME 8.6 FL (7.0-11.0); PLATELET COUNT 303 TH/MM3 (150-450); RED BLOOD COUNT 4.45 MIL/MM3 (4.50-5.90); RED CELL DISTRIBUTION WIDTH 12.4 % (11.6-17.2); WHITE BLOOD COUNT 6.2 TH/MM3 (4.0-11.0)
[2017-12-23 05:52] LABS: ALBUMIN 3.2 GM/DL (3.4-5.0); AST (GOT) 104 U/L (15-37); BICARBONATE 29.8 MEQ/L (21.0-32.0); BLOOD UREA NITROGEN 14 MG/DL (7-18); CALCIUM 9.4 MG/DL (8.5-10.1); CHLORIDE 102 MEQ/L (98-107); CREATININE 0.92 MG/DL (0.60-1.30); GLOMERULAR FILTRATION RATE 85 ML/MIN (>89); GLUCOSE,RANDOM 107 MG/DL (74-106); MAGNESIUM 1.7 MG/DL (1.5-2.5); SODIUM (NA) 138 MEQ/L (136-145)
[2017-12-23 05:55] LABS: ALKALINE PHOSPHATASE 88 U/L (45-117); ALT (GPT) 175 U/L (12-78); PHOSPHORUS 3.4 MG/DL (2.5-4.9); TOTAL BILIRUBIN ADULT 0.6 MG/DL (0.2-1.0); TOTAL PROTEIN 7.6 GM/DL (6.4-8.2)
[2017-12-23] MEDS: INSULIN ASPART SUPPLEMENTAL SCALE SQ SCH ×4 (08:00→20:59)
[2017-12-23] MEDS: SODIUM CHLOR 0.9% 1000 ML INJ 1,000 ML IV SCH (08:17)
--- NOTE | 2017-12-23 08:52 | HHI.PR ---
Review/Management Diagnosis/Plan: (1) Acute right MCA stroke ICD Codes: I63.511 - Cerebral infarction due to unspecified occlusion or stenosis of right middle cerebral artery Status: Acute Plan: appears to have infarct with ich component. somewhat unusual to have ich occur this quickly but pt was quite hypertensive at [facility] [place] er f/u cta's- negative blood thinners precarious to use with ICH component recs doing well p.t. f/u echo card eval for gigi/loop recorder-pending ok for floor with tele d/c mj, tobacco use appreciate CCM team (2) HTN (hypertension) ICD Codes: I10 - Essential (primary) hypertension Status: Chronic (3) Chewing tobacco nicotine dependence ICD Codes: F17.220 - Nicotine dependence, chewing tobacco, uncomplicated Status: Chronic Subjective Subjective Comments No acute events reported No headache No chest pain No dyspnea Active Medications Current Medications Medications (Trade) Dose Ordered Sig/Mark Route Start Time Stop Time Status Last Admin Sodium Chloride 1,000 ml @ 42 mls/hr [id number] IV 12/22/17 08:28 12/22/17 10:00 (NS Flush) 2 ml UNSCH PRN IV FLUSH 12/22/17 08:30 (NS Flush) 2 ml BID IV FLUSH 12/22/17 09:00 12/22/17 21:00 (Tylenol) 650 mg Q6H PRN PO 12/22/17 08:30 12/22/17 15:00 (Pepcid Inj) 20 mg Q12HR IV PUSH 12/22/17 10:00 12/22/17 21:05 (Zofran Inj) 4 mg Q6H PRN IV PUSH 12/22/17 08:30 (Duoneb Neb) 1 ampule Q6HR NEB INH 12/22/17 10:00 12/23/17 07:37 (Duoneb Neb) 1 ampule Q2HR NEB PRN INH 12/22/17 08:30 Miscellaneous Information 1 Q361D XX 12/22/17 08:30 12/22/17 08:30 (Chlorhexidine 2% Cloth) 3 pack Taper DAILY@04 TOP 12/23/17 04:00 12/19/18 03:59 (Chlorhexidine 2% Cloth) 3 pack UNSCH PRN TOP 12/22/17 08:30 (Kayleigh-Colace) 1 tab BID PO 12/22/17 10:00 12/22/17 21:05 (Milk Of Magnesia Liq) 30 ml Q12H PRN PO 12/22/17 08:30 (Senokot) 17.2 mg Q12H PRN PO 12/22/17 08:30 (Dulcolax Supp) 10 mg DAILY PRN RECTAL 12/22/17 08:30 (Lactulose Liq) 30 ml DAILY PRN PO 12/22/17 08:30 (D50w (Vial) Inj) 50 ml UNSCH PRN IV PUSH 12/22/17 09:15 12/22/17 15:01 (Glucagon Inj) 1 mg UNSCH PRN OTHER 12/22/17 09:15 (NovoLOG SUPPLEMENTAL SCALE) 1 ACHS SLIDING SCALE SQ 12/22/17 12:00 Multivitamins 10 ml/Folic Acid 1 mg/Sodium Chloride 510.2 ml @ 125 mls/hr Q24H IV 12/22/17 11:00 12/27/17 10:59 12/22/17 13:15 Thiamine HCl 100 mg/Sodium Chloride 101 ml @ 100 mls/hr Q24H IV 12/22/17 11:00 12/25/17 10:59 12/22/17 13:14 Levetriacetam 500 mg/Sodium Chloride 105 ml @ 420 mls/hr Q12HR IV 12/22/17 21:00 12/22/17 21:05 (Proair Hfa Inh) 2 puff Q4H PRN INH 12/22/17 13:15 12/22/17 16:37 (Tenormin) 100 mg DAILY PO 12/22/17 13:15 12/22/17 16:29 (Catapres) 0.1 mg BID PO 12/22/17 13:15 12/22/17 21:52 (Tricor) 145 mg DAILY PO 12/22/17 14:45 12/22/17 16:29 (Symbicort 160-4.5 Mcg Inh) 2 puff BID INH 12/22/17 21:00 12/22/17 21:00 (Cozaar) 100 mg DAILY PO 12/22/17 15:00 12/22/17 15:00 (Lipitor) 40 mg DAILY PO 12/22/17 14:30 12/22/17 14:59 Nicardipine HCl 25 mg/Sodium Chloride 250 ml @ 50 mls/hr TITRATE PRN IV 12/22/17 13:15 12/22/17 15:00 (Hydrodiuril) 25 mg DAILY PO 12/22/17 15:00 12/22/17 15:00 Allergies Allergies Coded Allergies No Known Allergies (Verified Allergy, Unknown, 12/22/17) Review of Systems All other ROS: ROS reviewed as documented in chart Exam I&O / VS Vital Signs Date Time Temp Pulse Resp B/P (MAP) Pulse Ox O2 Delivery O2 Flow Rate FiO2 12/23/17 08:00 80 12/23/17 08:00 97.9 80 13 120/69 (86) 100 12/23/17 07:38 98 Nasal Cannula 2.00 12/23/17 07:00 93 Room Air 12/23/17 06:00 86 12/23/17 04:00 76 12/23/17 04:00 98.0 76 18 119/60 (79) 95 12/23/17 02:00 76 12/23/17 00:00 82 12/23/17 00:00 98.1 82 22 113/60 (77) 95 12/22/17 22:00 86 12/22/17 20:00 98.4 92 38 105/59 (74) 95 12/22/17 20:00 92 12/22/17 19:00 98.7 86 22 109/57 (74) 98 12/22/17 19:00 98 Nasal Cannula 2.00 12/22/17 18:00 93 12/22/17 18:00 98.7 93 22 111/69 (83) 98 12/22/17 16:45 112 12/22/17 16:38 107/60 12/22/17 16:00 98.4 120 22 111/57 (75) 94 12/22/17 16:00 120 12/22/17 16:00 111/57 12/22/17 15:00 130 12/22/17 15:00 98.1 130 23 106/52 (70) 98 12/22/17 15:00 106/52 12/22/17 14:00 124 12/22/17 14:00 98.7 124 19 126/65 (85) 96 12/22/17 13:00 98.2 122 21 129/69 (89) 97 12/22/17 12:30 129/68 12/22/17 12:00 98.2 121 21 129/68 (88) 96 12/22/17 12:00 121 12/22/17 11:00 98.6 19 122/62 (82) 94 12/22/17 10:15 124/76 12/22/17 10:00 128 12/22/17 10:00 98.3 128 17 132/83 (99) 94 12/22/17 10:00 98.7 122 16 165/87 (113) 99 12/22/17 10:00 98.3 128 17 132/83 (99) General: Alert and Oriented, No acute distress Eye: EOMI Respiratory: Non-labored respirations Cardiology: Normal rate Neurologic: Alert, Oriented, Normal DTR's Psychiatric: Cooperative, Appropriate mood & affect Exam Comments ox 3, no aphasia, follows, articulate, eomi, ou 3-2mm, mild reduced left nlf, no drift but slight left ue dystaxia and left le 5-/5, mild reduced pin distal left hand, gait not assessed 12/20 fall risk Objective Micro and Labs Laboratory Tests Test 12/22/17 09:20 12/22/17 10:35 12/22/17 16:25 12/22/17 17:55 Urine Opiates Screen NEG Urine Barbiturates Screen NEG Urine Amphetamines Screen NEG Urine Benzodiazepines Screen NEG Urine Cocaine Screen NEG Urine Cannabinoids Screen POS Nasal Screen MRSA (PCR) MRSA NOT DETECTED Troponin I LESS THAN 0.02 Test 12/23/17 05:09 White Blood Count 6.2 Red Blood Count 4.45 Hemoglobin 14.0 Hematocrit 39.8 Mean Corpuscular Volume 89.5 Mean Corpuscular Hemoglobin 31.5 Mean Corpuscular Hemoglobin Concent 35.2 Red Cell Distribution Width 12.4 Platelet Count 303 Mean Platelet Volume 8.6 Blood Urea Nitrogen 14 Creatinine 0.92 Random Glucose 107 Total Protein 7.6 Albumin 3.2 Calcium Level 9.4 Phosphorus Level 3.4 Magnesium Level 1.7 Alkaline Phosphatase 88 Aspartate Amino Transf (AST/SGOT) 104 Alanine Aminotransferase (ALT/SGPT) 175 Total Bilirubin 0.6 Sodium Level 138 Potassium Level 4.1 Chloride Level 102 Carbon Dioxide Level 29.8 Anion Gap 6 Estimat Glomerular Filtration Rate 85 Problem Qualifiers (1) HTN (hypertension): Qualified Codes: I10 - Essential (primary) hypertension Vance Oh MD Dec 23, 2017 08:52
[2017-12-23] MEDS: BUDESONIDE-FORMOTEROL 160/4.5 MCG INHALER INH SCH ×2 (09:00→20:25)
[2017-12-23] MEDS: SODIUM CHLORIDE 0.9% FLUSH 10 ML FLUSH IV FLUSH SCH ×2 (09:00→20:26)
[2017-12-23] MEDS: DOCUSATE SODIUM 50 MG/SENNA 8.6 MG TAB PO SCH ×2 (09:00→20:26)
--- NOTE | 2017-12-23 09:23 | MB ---
cc: ALLEN MCCLENDON MD DATE OF CONSULTATION December 23, 2017 REASON FOR CONSULTATION CVA. HISTORY OF PRESENT ILLNESS The patient is a very pleasant 57-year-old gentleman with no prior cardiac history who presented with left-sided weakness and a CT of the brain showed a right subcortical infarct with small intracranial hemorrhage. I have been asked to perform a SARKIS and implanted a loop recorder to help diagnose the etiology of the patient's CVA. PAST MEDICAL HISTORY 1. Hypertension. 2. Chewing tobacco use. 3. Hyperlipidemia. CURRENT MEDICATIONS 1. Cozaar 100 mg daily. 2. Hydrochlorothiazide 25 mg daily. 3. Tricor 145 mg daily. 4. Atorvastatin 40 mg daily. 5. Atenolol 100 mg daily. 6. Clonidine 0.1 mg p.o. b.i.d. ALLERGIES No known drug allergies. PHYSICAL EXAMINATION VITAL SIGNS: Afebrile, pulse 80, respiratory rate 13, BP 120/69, sating 100 on 2 liters. GENERAL: A very pleasant, obese gentleman in no distress. NECK: No JVD. LUNGS: Clear to auscultation bilaterally. CARDIOVASCULAR: Regular rate and rhythm; no murmur appreciated ABDOMEN: Benign. EXTREMITIES: No edema. LABORATORY DATA White count 6.2, hematocrit 39.8, platelets 303. Sodium 138, potassium 4.1, chloride 102, bicarb 29.8, BUN 14, creatinine 0.92, glucose 107, cardiac enzymes are negative. Toxicology screen is positive for cannabinoids. IMAGING STUDIES MRI of the brain showed a small acute infarction along the posterior insular cortex with a small amount of hemorrhage. EKG Pending. IMPRESSION 1. CVA. The patient has a small CVA of an uncertain etiology. I believe a SARKIS and loop recorder are reasonable. I discussed the risks of both procedures with the patient and he agrees to proceed. These procedures will be done henceforth following which he can follow up with me in the office in 1-2 weeks and I will be available as needed. Thank you again for the opportunity to participate in this patient's care. Allen Mcclendon MD SHALONDA/RASHIDA /9:04 AM /9:12 AM
--- NOTE | 2017-12-23 09:31 | HHI.NSPN ---
(Bren Nation) Note Status Status: Progress Note (Bren Nation) Interval History Interval History This is a 57 yo male with history of arterial hypertension that presented to [facility] with difficulty with ambulation and left-sided weakness . He also has history of hyperlipidemia. He reports that he woke up to go to the bathroom at 5am and everything was normal. He then woke up at 7am and had left- sided weakness He has a past medical history of hypertension for approximately 10 years, patient on multiple antihypertensive meds available report from - Clonidine , and other meds which he ran out of and did not refill. In addition he takes Losartan and Simvastatin. The patient relates that he took his losartan at approximately 5 AM. He was very hypertensive this morning, with a BP of 228/153 , and was started on a Nicardipine infusion. CT brain noted acute infarction with a 6 mm focal area of hemorrhage without midline shift or mass effect right parietal lobe area. Dr. Oh was notified per ED physician Dr. العلي, Ivett bolus was initiated for seizure prophylaxis. He denies any nauseous or vomiting. No seizure activity. No tongue biting. No incontinence of stool or urine. No tonic-clonic movement seen. Neurosurgical consultation was requested 12/23: reports to be feeling well, numbness improving left side, still reports slightly weaker than right (Bren Nation) Labs, Micro, & Vital Signs Results Date Time Temp Pulse Resp B/P (MAP) Pulse Ox O2 Delivery O2 Flow Rate FiO2 12/23/17 08:00 80 12/23/17 08:00 97.9 80 13 120/69 (86) 100 12/23/17 07:38 98 Nasal Cannula 2.00 12/23/17 07:00 93 Room Air 12/23/17 06:00 86 12/23/17 04:00 76 12/23/17 04:00 98.0 76 18 119/60 (79) 95 12/23/17 02:00 76 12/23/17 00:00 82 12/23/17 00:00 98.1 82 22 113/60 (77) 95 12/22/17 22:00 86 12/22/17 20:00 98.4 92 38 105/59 (74) 95 12/22/17 20:00 92 12/22/17 19:00 98.7 86 22 109/57 (74) 98 12/22/17 19:00 98 Nasal Cannula 2.00 12/22/17 18:00 93 12/22/17 18:00 98.7 93 22 111/69 (83) 98 12/22/17 16:45 112 12/22/17 16:38 107/60 12/22/17 16:00 98.4 120 22 111/57 (75) 94 12/22/17 16:00 120 12/22/17 16:00 111/57 12/22/17 15:00 130 12/22/17 15:00 98.1 130 23 106/52 (70) 98 12/22/17 15:00 106/52 12/22/17 14:00 124 12/22/17 14:00 98.7 124 19 126/65 (85) 96 12/22/17 13:00 98.2 122 21 129/69 (89) 97 12/22/17 12:30 129/68 12/22/17 12:00 98.2 121 21 129/68 (88) 96 12/22/17 12:00 121 12/22/17 11:00 98.6 19 122/62 (82) 94 12/22/17 10:15 124/76 12/22/17 10:00 128 12/22/17 10:00 98.3 128 17 132/83 (99) 94 12/22/17 10:00 98.7 122 16 165/87 (113) 99 12/22/17 10:00 98.3 128 17 132/83 (99) Constitutional Vital Signs Date Time Temp Pulse Resp B/P (MAP) Pulse Ox O2 Delivery O2 Flow Rate FiO2 12/23/17 08:00 80 12/23/17 08:00 97.9 80 13 120/69 (86) 100 12/23/17 07:38 98 Nasal Cannula 2.00 12/23/17 07:00 93 Room Air 12/23/17 06:00 86 12/23/17 04:00 76 2/5/18 04:00 98.0 76 18 119/60 (79) 95 218 02:00 76 2/18 00:00 82 2/18 00:00 98.1 82 22 113/60 (77) 95 12/22/17 22:00 86 2/03/05 20:00 98.4 92 38 105/59 (74) 95 12/22/17 20:00 92 12/22/17 19:00 98.7 86 22 109/57 (74) 98 12/22/17 19:00 98 Nasal Cannula 2.00 2 18:00 93 2 18:00 98.7 93 22 111/69 (83) 98 12/22/17 16:45 112 12/22/17 16:38 107/60 12/22/17 16:00 98.4 120 22 111/57 (75) 94 12/22/17 16:00 120 12/22/17 16:00 111/57 12/22/17 15:00 130 /03/05 15:00 98.1 130 23 106/52 (70) 98 12/22/17 15:00 106/52 12/22/17 14:00 124 12/22/17 14:00 98.7 124 19 126/65 (85) 96 12/22/17 13:00 98.2 122 21 129/69 (89) 97 12/22/17 12:30 129/68 12/22/17 12:00 98.2 121 21 129/68 (88) 96 12/22/17 12:00 121 12/22/17 11:00 98.6 19 122/62 (82) 94 12/22/17 10:15 124/76 12/22/17 10:00 128 /03/05 10:00 98.3 128 17 132/83 (99) 94 12/22/17 10:00 98.7 122 16 165/87 (113) 99 12/22/17 10:00 98.3 128 17 132/83 (99) (Bren Nation) Physical Exam Mr. Gipson is alert, awake and oriented to time, place and person. Speech is fluent. Higher cognitive functions are normal. HENT: normocephalic, atraumatic. nonicteric sclera. Cranial nerve examination demonstrates the pupils to be equal, round, and reactive to light. Extra-ocular movements are intact. Facial motor and sensory function are normal and symmetrical. Gross hearing is intact, bilaterally. The uvula is midline and elevates symmetrically with the soft palate. Sternocleidomastoid and trapezius muscles have normal and symmetrical strength. Other cranial nerves are intact. Neck is soft and supple. Muscle testing reveals normal bulk and tone overall without rigidity, spasticity , fasciculations, or atrophy. Moves all major muscle groups well with 4 to 4+/ 5 left side paresis. Sensory examination is mildly decreased to light touch left lower extremity. Deep tendon reflexes are 1+ and symmetrical in the biceps, triceps, and brachioradialis, bilaterally, in the upper extremities. In the lower extremities, the patellar and Achilles are 1+, bilaterally. There is a bilateral plantar flexion response. There is no clonus or other abnormal reflexes noted. Cerebellar examination is intact to [id number] test. Respiratory: clear to auscultate bilaterally Heart: regular rate and rhythm (Bren Nation) Mr. Gipson is alert, awake and oriented to time, place and person. Speech is fluent. Higher cognitive functions are normal. HENT: normocephalic, atraumatic. nonicteric sclera. Cranial nerve examination demonstrates the pupils to be equal, round, and reactive to light. Extra-ocular movements are intact. Facial motor and sensory function are normal and symmetrical. Gross hearing is intact, bilaterally. The uvula is midline and elevates symmetrically with the soft palate. Sternocleidomastoid and trapezius muscles have normal and symmetrical strength. Other cranial nerves are intact. Neck is soft and supple. Muscle testing reveals normal bulk and tone overall without rigidity, spasticity , fasciculations, or atrophy. Moves all major muscle groups well with 4 to 4+/ 5 left side paresis. Sensory examination is mildly decreased to light touch left lower extremity. Deep tendon reflexes are 1+ and symmetrical in the biceps, triceps, and brachioradialis, bilaterally, in the upper extremities. In the lower extremities, the patellar and Achilles are 1+, bilaterally. There is a bilateral plantar flexion response. There is no clonus or other abnormal reflexes noted. Cerebellar examination is intact to gsuoty-[id number] test. Respiratory: clear to auscultate bilaterally Heart: regular rate and rhythm (Samson Franks MD) Medications Current Medications Current Medications Medications (Trade) Dose Ordered Sig/Mark Route PRN Reason Start Time Stop Time Status Last Admin Dose Admin Sodium Chloride 1,000 ml @ 42 mls/hr [id number] IV 12/22/17 08:28 12/22/17 10:00 Sodium Chloride (NS Flush) 2 ml UNSCH PRN IV FLUSH FLUSH AFTER USING IV ACCESS 12/22/17 08:30 Sodium Chloride (NS Flush) 2 ml BID IV FLUSH 12/22/17 09:00 12/22/17 21:00 Acetaminophen (Tylenol) 650 mg Q6H PRN PO PAIN 1-10 AND/OR FEVER >101F 12/22/17 08:30 12/22/17 15:00 Famotidine (Pepcid Inj) 20 mg Q12HR IV PUSH 12/22/17 10:00 12/22/17 21:05 Ondansetron HCl (Zofran Inj) 4 mg Q6H PRN IV PUSH NAUSEA OR VOMITING 12/22/17 08:30 Albuterol/ Ipratropium (Duoneb Neb) 1 ampule Q6HR NEB INH 12/22/17 10:00 12/23/17 07:37 Albuterol/ Ipratropium (Duoneb Neb) 1 ampule Q2HR NEB PRN INH WHEEZING 12/22/17 08:30 Miscellaneous Information 1 Q361D XX 12/22/17 08:30 12/22/17 08:30 Chlorhexidine Gluconate (Chlorhexidine 2% Cloth) 3 pack Taper DAILY@04 TOP 12/23/17 04:00 12/19/18 03:59 Chlorhexidine Gluconate (Chlorhexidine 2% Cloth) 3 pack UNSCH PRN TOP HYGIENIC CARE 12/22/17 08:30 Senna/Docusate Sodium (Kayleigh-Colace) 1 tab BID PO 12/22/17 10:00 12/22/17 21:05 Magnesium Hydroxide (Milk Of Magnesia Liq) 30 ml Q12H PRN PO Mild constipation 12/22/17 08:30 Sennosides (Senokot) 17.2 mg Q12H PRN PO Moderate constipation 12/22/17 08:30 Bisacodyl (Dulcolax Supp) 10 mg DAILY PRN RECTAL SEVERE CONSITIPATION 12/22/17 08:30 Lactulose (Lactulose Liq) 30 ml DAILY PRN PO SEVERE CONSITIPATION 12/22/17 08:30 Dextrose (D50w (Vial) Inj) 50 ml UNSCH PRN IV PUSH HYPOGLYCEMIA-SEE COMMENTS 12/22/17 09:15 12/22/17 15:01 Glucagon (Glucagon Inj) 1 mg UNSCH PRN OTHER HYPOGLYCEMIA-SEE COMMENTS 12/22/17 09:15 Insulin Aspart (NovoLOG SUPPLEMENTAL SCALE) 1 ACHS SLIDING SCALE SQ 12/22/17 12:00 Multivitamins 10 ml/Folic Acid 1 mg/Sodium Chloride 510.2 ml @ 125 mls/hr Q24H IV 12/22/17 11:00 12/27/17 10:59 12/22/17 13:15 Thiamine HCl 100 mg/Sodium Chloride 101 ml @ 100 mls/hr Q24H IV 12/22/17 11:00 12/25/17 10:59 12/22/17 13:14 Levetriacetam 500 mg/Sodium Chloride 105 ml @ 420 mls/hr Q12HR IV 12/22/17 21:00 12/22/17 21:05 Albuterol Sulfate (Proair Hfa Inh) 2 puff Q4H PRN INH SHORTNESS OF BREATH 12/22/17 13:15 12/22/17 16:37 Atenolol (Tenormin) 100 mg DAILY PO 12/22/17 13:15 12/22/17 16:29 Clonidine (Catapres) 0.1 mg BID PO 12/22/17 13:15 12/22/17 21:52 Fenofibrate (Tricor) 145 mg DAILY PO 12/22/17 14:45 12/22/17 16:29 Budesonide/ Formoterol Fumarate (Symbicort 160-4.5 Mcg Inh) 2 puff BID INH 12/22/17 21:00 12/22/17 21:00 Losartan Potassium (Cozaar) 100 mg DAILY PO 12/22/17 15:00 12/22/17 15:00 Atorvastatin Calcium (Lipitor) 40 mg DAILY PO 12/22/17 14:30 12/22/17 14:59 Nicardipine HCl 25 mg/Sodium Chloride 250 ml @ 50 mls/hr TITRATE PRN IV Blood pressure management 12/22/17 13:15 12/22/17 15:00 Hydrochlorothiazide (Hydrodiuril) 25 mg DAILY PO 12/22/17 15:00 12/22/17 15:00 (Bren Nation) Current Medications Current Medications Nicardipine HCl 25 mg/Sodium Chloride 250 ml @ 0 mls/hr TITRATE ONCE IV Last administered on 12/22/17 08:23; Start 12/22/17 at 08:00; Stop 12/22/17 at 08:01; Status DC Levetriacetam 100 ml @ 400 mls/hr BOLUS ONCE IV ; Start 12/22/17 at 08:30; Stop 12/22/17 at 08:44; Status DC Sodium Chloride 1,000 ml @ 42 mls/hr [id number] IV Last administered on 12/24/17at 10:10; Start 12/22/17 at 08:28 Sodium Chloride (NS Flush) 2 ml UNSCH PRN IV FLUSH FLUSH AFTER USING IV ACCESS ; Start 12/22/17 at 08:30 Sodium Chloride (NS Flush) 2 ml BID IV FLUSH Last administered on 12/24/17at 10: 13; Start 12/22/17 at 09:00 Acetaminophen (Tylenol) 650 mg Q6H PRN PO PAIN 1-10 AND/OR FEVER >101F Last administered on 12/22/17at 15:00; Start 12/22/17 at 08:30 Famotidine (Pepcid Inj) 20 mg Q12HR IV PUSH Last administered on 12/24/17at 10:13 ; Start 12/22/17 at 10:00 Ondansetron HCl (Zofran Inj) 4 mg Q6H PRN IV PUSH NAUSEA OR VOMITING; Start 12/22/17 at 08:30 Albuterol/ Ipratropium (Duoneb Neb) 1 ampule Q6HR NEB INH Last administered on 12/24/17at 07:49; Start 12/22/17 at 10:00 Albuterol/ Ipratropium (Duoneb Neb) 1 ampule Q2HR NEB PRN INH WHEEZING; Start 12/22/17 at 08:30 Miscellaneous Information 1 Q361D XX Last administered on 12/22/17at 08:30; Start 12/22/17 at 08:30 Chlorhexidine Gluconate (Chlorhexidine 2% Cloth) 3 pack Taper DAILY@04 TOP ; Start 12/23/17 at 04:00; Stop 12/19/18 at 03:59 Chlorhexidine Gluconate (Chlorhexidine 2% Cloth) 3 pack UNSCH PRN TOP HYGIENIC CARE; Start 12/22/17 at 08:30 Senna/Docusate Sodium (Kayleigh-Colace) 1 tab BID PO Last administered on 12/22/17at 21:05; Start 12/22/17 at 10:00 Magnesium Hydroxide (Milk Of Magnesia Liq) 30 ml Q12H PRN PO Mild constipation ; Start 12/22/17 at 08:30 Sennosides (Senokot) 17.2 mg Q12H PRN PO Moderate constipation; Start 12/22/17 at 08:30 Bisacodyl (Dulcolax Supp) 10 mg DAILY PRN RECTAL SEVERE CONSITIPATION; Start at 08:30 Lactulose (Lactulose Liq) 30 ml DAILY PRN PO SEVERE CONSITIPATION; Start at 08:30 Dextrose (D50w (Vial) Inj) 50 ml UNSCH PRN IV PUSH HYPOGLYCEMIA-SEE COMMENTS Last administered on 12/22/17at 15:01; Start 12/22/17 at 09:15 Glucagon (Glucagon Inj) 1 mg UNSCH PRN OTHER HYPOGLYCEMIA-SEE COMMENTS; Start 12/22/17 at 09:15 Insulin Aspart (NovoLOG SUPPLEMENTAL SCALE) 1 ACHS SLIDING SCALE SQ ; Start 12/22/17 at 12:00 Multivitamins 10 ml/Folic Acid 1 mg/Sodium Chloride 510.2 ml @ 125 mls/hr Q24H IV Last administered on 12/24/17at 11:36; Start 12/22/17 at 11:00; Stop 12/27/17 at 10:59 Thiamine HCl 100 mg/Sodium Chloride 101 ml @ 100 mls/hr Q24H IV Last administered on 12/24/17at 11:46; Start 12/22/17 at 11:00; Stop 12/25/17 at 10:59 Levetriacetam 500 mg/Sodium Chloride 105 ml @ 420 mls/hr Q12HR IV Last administered on 12/23/17at 20:26; Start 12/22/17 at 21:00; Stop 12/24/17 at 08:00; Status DC Gadodiamide (Omniscan Pf Inj) 20 ml STK-MED ONCE IVCONTRAST Last administered on 12/22/17 12:01; Start 12/22/17 at 12:01; Stop 12/22/17 at 12:02; Status DC Albuterol Sulfate (Proair Hfa Inh) 2 puff Q4H PRN INH SHORTNESS OF BREATH Last administered on 12/22/17 16:37; Start 12/22/17 at 13:15 Atenolol (Tenormin) 100 mg DAILY PO Last administered on 12/24/17 09:25; Start 12/22/17 at 13:15 Clonidine (Catapres) 0.1 mg BID PO Last administered on 12/24/17 09:25; Start 12/22/17 at 13:15 Fenofibrate (Tricor) 145 mg DAILY PO Last administered on 12/24/17 09:25; Start 12/22/17 at 14:45 Budesonide/ Formoterol Fumarate (Symbicort 160-4.5 Mcg Inh) 2 puff BID INH Last administered on 12/23/17 20:25; Start 12/22/17 at 21:00 Losartan Potassium (Cozaar) 100 mg DAILY PO Last administered on 12/24/17 09:25 ; Start 12/22/17 at 15:00 Atorvastatin Calcium (Lipitor) 40 mg DAILY PO Last administered on 12/24/17 10: 12; Start 12/22/17 at 14:30 Nicardipine HCl 25 mg/Sodium Chloride 250 ml @ 50 mls/hr TITRATE PRN IV Blood pressure management Last administered on 12/22/17 15:00; Start 12/22/17 at 13:15 Hydrochlorothiazide (Hydrodiuril) 25 mg DAILY PO Last administered on 12/24/17 09:25; Start 12/22/17 at 15:00 Midazolam HCl (Versed Inj) 5 mg STK-MED ONCE .ROUTE Last administered on 10:06; Start 12/23/17 at 09:48; Stop 12/23/17 at 09:49; Status DC Fentanyl Citrate (fentaNYL INJ) 100 mcg STK-MED ONCE .ROUTE Last administered on 2/5/18at 10:07; Start 12/23/17 at 09:48; Stop 12/23/17 at 09:49; Status DC Cefazolin Sodium 1000 mg/Sodium Chloride 100 ml @ 200 mls/hr ONCE ONCE IV Last administered on 12/23/17 10:15; Start 12/23/17 at 10:15; Stop 12/23/17 at 10: 44; Status DC Fentanyl Citrate (fentaNYL INJ) 100 mcg STK-MED ONCE .ROUTE ; Start 12/23/17 at 11:24; Stop 12/23/17 at 11:25; Status DC Pneumococcal Polyvalent Vaccine (Pneumovax-23 Inj) 25 mcg ONCE ONCE IM Last administered on 12/24/17at 09:24; Start 12/24/17 at 10:00; Stop 12/24/17 at 10:01; Status DC Influenza Virus Vaccine (Flu (Quadrivalent) Vaccine Inj) 0.5 ml ONCE ONCE IM Last administered on 12/24/17at 09:23; Start 12/24/17 at 10:00; Stop 12/24/17 at 10: 01; Status DC Iohexol (Omnipaque 350 Inj) 79 ml STK-MED ONCE IVCONTRAST Last administered on 12/22/17at 18:17; Start 12/22/17 at 18:17; Stop 12/24/17 at 14:02; Status DC (Samson Franks MD) Medical Decision Making MDM Remarks 57 y/o male with acute right hemorrhagic CVA, most likely hypertensive hypertensive crisis (Bren Nation) Plan Plan Remarks MRIs reviewed, stable acute hemorrhagic infarction cont nonoperative management cont antihypertensives and blood pressure control Neurology following for stroke work up stroke therapy will follow (Bren Nation) Attending Statement Continue nonoperative management Blood pressure management The exam, history, and the medical decision-making described in the above note were completed with the assistance of the mid-level provider. I reviewed and agree with the findings presented. I attest that I had a [id number] encounter with the patient on the same day, and personally performed and documented my assessment and findings in the medical record. (Samson Franks MD) Bren Nation Dec 23, 2017 09:31 Samson Franks MD Dec 24, 2017 14:39
[2017-12-23] MEDS ORDERED: MIDAZOLAM HCL 5 MG/ML VIAL (1 ML) ONE (09:48)
--- NOTE | 2017-12-23 10:36 | MR ---
cc: ALLEN MCCLENDON MD DATE: 12/23/2017 PROCEDURES PERFORMED 1. 15 minutes of moderate IV sedation. 2. Loop recorder insertion. DESCRIPTION OF PROCEDURE After informed consent was obtained, the patient was prepped and draped in the standard sterile technique. Using the standard technique a ColoWrap Linq loop recorder was inserted subcutaneously in the left chest. The patient tolerated the procedure well without any apparent complications. Initial R-wave was 0.35 mV. Tachybrady pause and atrial fibrillation detection was enabled. The serial number was [id number]. Anesthesia used was 4 mg of Versed and 15 mcg of fentanyl. Allen Mcclendon MD SHALONDA/TLL /10:18 AM /10:22 AM
--- NOTE | 2017-12-23 10:37 | HHI.CCPN ---
Subjective Remarks/Hospital Course This is a 57 yo male that presented to [facility] with difficulty with ambulation and left-sided weakness . The patient notably has a PMH of HTN and HLD . Alert was initiated. He said he woke up to go to the bathroom at 5am and everything was normal. He then woke up at 7am and had the symptoms. Of note the patient has had a past medical history of hypertension for approximately 10 years, patient on multiple antihypertensive meds available report from - Clonidine, and other meds which he ran out of and did not refill ,currently taking Losartan and Simvastatin. The patient relates that he took his losartan at approximately 5 AM. The patient presented with a BP of 228 /153 , and was started on a Nicardipine infusion. Upon entering the ED the patient's BP was noted to b195/97 and on nicardipine 9mg/hr. laboratory and imaging studies were performed. CT brain noted acute infarction with a 6 mm focal area of hemorrhage without midline shift or mass effect right parietal lobe area. Dr. Oh was notified per ED physician Ivett Carlisle bolus was initiated for seizure prophylaxis. Of note the patient's social history includes marijuana use greater than 47 years, and alcohol usage 7 glasses of whiskey approximately 3 times a week . Critical care medicine has been consulted. 12/23: I evaluated the patient after completion of SARKIS. Sedated for the procedure received approximately 10 mg IV Versed and 125 mcg of fentanyl. CTA brain and neck essentially unremarkable. Neurosurgery and neurology following Objective Vital Signs Date Time Temp Pulse Resp B/P (MAP) Pulse Ox O2 Delivery O2 Flow Rate FiO2 12/23/17 10:00 88 12/23/17 08:00 97.9 13 120/69 (86) 100 12/23/17 07:38 Nasal Cannula 2.00 Intake and Output 12/23/17 12/23/17 12/24/17 08:00 16:00 00:00 Intake Total 200 ml Output Total 1300 ml Balance -1100 ml Result Diagram: 12/23/17 0509 12/23/17 0509 Imaging Last Impressions Head CT 12/22/17 0000 Signed Impressions: Service Date/Time: Friday, December 22, 2017 07:52 - CONCLUSION: Small area of low attenuation in the right parietal lobe may be acute infarction with focal 6 mm area of hemorrhage. No significant mass effect or midline shift. Rsusel Valencia MD Objective Remarks GENERAL: This is an obese critically ill male patient, sedated from SARKIS SKIN: Warm and dry. HEAD: Atraumatic. Normocephalic. EYES: Pupils equal and round. No scleral icterus. No injection or drainage. ENT: No nasal bleeding or discharge. Mucous membranes pink and moist. NECK: Trachea midline. No JVD. CARDIOVASCULAR: S1-S2 normal no murmurs RESPIRATORY: No accessory muscle use. Clear to auscultation. Breath sounds equal bilaterally. GASTROINTESTINAL: Abdomen soft, non-tender, slightly protuberant, nondistended. MUSCULOSKELETAL: Extremities without clubbing, cyanosis, or edema NEUROLOGICAL: Sedated from meds for SARKIS. Moves all 4 extremities. (will re evaluate after sedation wears off) A/P Assessment and Plan Plan by systems: Neurologic: Acute infarction right parietal lobe with 6 mm hemorrhage EtOH abuse THC use/abuse Neurochecks per ICU protocol Neurology consulted- Dr. Oh Seizure precautions, Keppra 1 Gm bolused in ED, Keppra 500 mg twice a day Neurosurgery consulted - Dr. Franks follow-up recommendations / CT brain -possibly acute infarction with 6 mm focal area of hemorrhage, right parietal lobe. No MLS, no mass effect Thiamine and folate daily Consider CIWA post neuroevaluation -concern for possible alcohol withdrawal Obtain urine drug screen CTA brain and neck unremarkable Respiratory: COPD Tobaccoism Patient currently on room air O2 saturation 97% DuoNeb every 6 hours and every 2 hours when necessary Obtain home meds from patient, states on an inhaler Patient chews tobacco greater than 48 years, quit smoking approximately 30 years ago Cardiovascular: Hypertensive crisis Rebound hypertension-most likely secondary to abrupt discontinuation of clonidine History of hypertension Hyperlipidemia Sinus tachycardia Maintain systolic blood pressure 140-160mmHg given stroke and ICH On nicardipine infusion Obtain home medication records, and reinstitute home meds-patient on clonidine, losartan and simvastatin Initiated clonidine dosing for rebound hypertension F/U troponin levels Cardiology consulted for SARKIS and loop recorder Renal: No Asher indicated -- Strict I/Os FEN/GI: Maintain nothing by mouth with exception of meds Monitor BMP Famotidine for GI prophylaxis Zofran for nausea Bowel regimen Heme/ID: Monitor CBC Obtain cultures if indicated INR 1.0 Endocrine: Glucose monitoring per ICU protocol - SSI Prophylaxis: GI Prophylaxis Famotidine BID DVT Prophylaxis - SCDs no chemical prophylaxis due to ICH Lines: Peripheral IVs 2. Central line if indicated. Dispo: Level 3 Transfer to Med surg with Tele, consult hospitalist to assume care 12/24/17 re exam once patient woke up no evident focal deficits Shantell Donohue MD Dec 23, 2017 10:37
[2017-12-23] MEDS: THIAMINE INJ 100 MG in SODIUM CHLORIDE 0.9% INJ 100 ML IV SCH (10:54)
[2017-12-23] MEDS: MULTIVITAMIN INJ 10 ML, FOLIC ACID INJ 1 MG in SODIUM CHLORID 0.9% 500 ML INJ 500 ML IV SCH (10:54)
[2017-12-23] MEDS: levETIRAcetam INJ 500 MG in SODIUM CHLORIDE 0.9% INJ 100 ML IV SCH ×2 (10:55→20:26)
[2017-12-23] MEDS: FAMOTIDINE 20 MG/2 ML VIAL IV PUSH SCH ×2 (10:56→20:26)
[2017-12-23] MEDS: LOSARTAN 50 MG TAB PO SCH (11:42)
[2017-12-23] MEDS: HYDROCHLOROTHIAZIDE 25 MG TAB PO SCH (11:42)
[2017-12-23] MEDS: FENOFIBRATE 145 MG TAB PO SCH (11:42)
[2017-12-23] MEDS: ATORVASTATIN 40 MG TAB PO SCH (11:42)
[2017-12-23] MEDS: ATENOLOL 100 MG TAB PO SCH (11:42)
[2017-12-23] MEDS: cloNIDine HCL 0.1 MG TAB PO SCH ×2 (11:42→20:26)
[2017-12-24] VITALS: BP 135/84; PULSE 85; RESP 17; TEMP 98.3; O2SAT 94
[2017-12-24 04:00] VITALS: BP 126/71; PULSE 82; RESP 17; TEMP 98.6; O2SAT 97
[2017-12-24] MEDS: CHLORHEXIDINE GLUCONATE 2 % 1 PACK (2 CLOTHS) TOP SCH (04:00)
[2017-12-24 05:07] VITALS: O2SAT 97
[2017-12-24] MEDS: RESP: ALBUTEROL 2.5 MG/IPRATROPIUM 0.5 MG NEB (SCH) INH ×3 (05:07→15:18)
[2017-12-24 07:50] VITALS: O2SAT 93
--- NOTE | 2017-12-24 07:57 | HHI.PR ---
Review/Management Diagnosis/Plan: (1) Acute right MCA stroke ICD Codes: I63.511 - Cerebral infarction due to unspecified occlusion or stenosis of right middle cerebral artery Status: Acute Plan: appears to have infarct with ich component. somewhat unusual to have ich occur this quickly but pt was quite hypertensive at [facility] f/u cta's- negative blood thinners precarious to use with ICH component recs doing well ok to d/c home with p.t. or rehab. pt prefers home outpatient f/u repeat brain imaging in 2-4 weeks. once resolution of ich then start plavix card eval for gigi/loop recorder-done; appreciate their assistance ok for floor with tele d/c mj, tobacco use appreciate CCM team (2) HTN (hypertension) ICD Codes: I10 - Essential (primary) hypertension Status: Chronic (3) Chewing tobacco nicotine dependence ICD Codes: F17.220 - Nicotine dependence, chewing tobacco, uncomplicated Status: Chronic Subjective Subjective Comments No acute events reported No headache No chest pain No dyspnea Active Medications Current Medications Medications (Trade) Dose Ordered Sig/Mark Route Start Time Stop Time Status Last Admin Sodium Chloride 1,000 ml @ 42 mls/hr [id number] IV 12/22/17 08:28 12/22/17 10:00 (NS Flush) 2 ml UNSCH PRN IV FLUSH 12/22/17 08:30 (NS Flush) 2 ml BID IV FLUSH 12/22/17 09:00 12/23/17 20:26 (Tylenol) 650 mg Q6H PRN PO 12/22/17 08:30 12/22/17 15:00 (Pepcid Inj) 20 mg Q12HR IV PUSH 12/22/17 10:00 12/23/17 20:26 (Zofran Inj) 4 mg Q6H PRN IV PUSH 12/22/17 08:30 (Duoneb Neb) 1 ampule Q6HR NEB INH 12/22/17 10:00 12/24/17 07:49 (Duoneb Neb) 1 ampule Q2HR NEB PRN INH 12/22/17 08:30 Miscellaneous Information 1 Q361D XX 12/22/17 08:30 12/22/17 08:30 (Chlorhexidine 2% Cloth) 3 pack Taper DAILY@04 TOP 12/23/17 04:00 12/19/18 03:59 (Chlorhexidine 2% Cloth) 3 pack UNSCH PRN TOP 12/22/17 08:30 (Kayleigh-Colace) 1 tab BID PO 12/22/17 10:00 12/22/17 21:05 (Milk Of Magnesia Liq) 30 ml Q12H PRN PO 12/22/17 08:30 (Senokot) 17.2 mg Q12H PRN PO 12/22/17 08:30 (Dulcolax Supp) 10 mg DAILY PRN RECTAL 12/22/17 08:30 (Lactulose Liq) 30 ml DAILY PRN PO 12/22/17 08:30 (D50w (Vial) Inj) 50 ml UNSCH PRN IV PUSH 12/22/17 09:15 12/22/17 15:01 (Glucagon Inj) 1 mg UNSCH PRN OTHER 12/22/17 09:15 (NovoLOG SUPPLEMENTAL SCALE) 1 ACHS SLIDING SCALE SQ 12/22/17 12:00 Multivitamins 10 ml/Folic Acid 1 mg/Sodium Chloride 510.2 ml @ 125 mls/hr Q24H IV 12/22/17 11:00 12/27/17 10:59 12/23/17 10:54 Thiamine HCl 100 mg/Sodium Chloride 101 ml @ 100 mls/hr Q24H IV 12/22/17 11:00 12/25/17 10:59 12/23/17 10:54 Levetriacetam 500 mg/Sodium Chloride 105 ml @ 420 mls/hr Q12HR IV 12/22/17 21:00 12/23/17 20:26 (Proair Hfa Inh) 2 puff Q4H PRN INH 12/22/17 13:15 12/22/17 16:37 (Tenormin) 100 mg DAILY PO 12/22/17 13:15 12/23/17 11:42 (Catapres) 0.1 mg BID PO 12/22/17 13:15 12/23/17 20:26 (Tricor) 145 mg DAILY PO 12/22/17 14:45 12/23/17 11:42 (Symbicort 160-4.5 Mcg Inh) 2 puff BID INH 12/22/17 21:00 12/23/17 20:25 (Cozaar) 100 mg DAILY PO 12/22/17 15:00 12/23/17 11:42 (Lipitor) 40 mg DAILY PO 12/22/17 14:30 12/23/17 11:42 Nicardipine HCl 25 mg/Sodium Chloride 250 ml @ 50 mls/hr TITRATE PRN IV 12/22/17 13:15 12/22/17 15:00 (Hydrodiuril) 25 mg DAILY PO 12/22/17 15:00 12/23/17 11:42 (Pneumovax-23 Inj) 25 mcg ONCE ONCE IM 12/24/17 10:00 12/24/17 10:01 (Flu (Quadrivalent) Vaccine Inj) 0.5 ml ONCE ONCE IM 12/24/17 10:00 12/24/17 10:01 Allergies Allergies Coded Allergies No Known Allergies (Verified Allergy, Unknown, 12/22/17) Review of Systems All other ROS: ROS reviewed as documented in chart Exam I&O / VS Vital Signs Date Time Temp Pulse Resp B/P (MAP) Pulse Ox O2 Delivery O2 Flow Rate FiO2 12/24/17 07:50 93 93 12/24/17 05:07 97 Nasal Cannula 2.00 12/24/17 04:00 82 12/24/17 04:00 98.6 82 17 126/71 (89) 97 12/24/17 00:00 98.3 85 17 135/84 (101) 94 12/24/17 00:00 85 12/23/17 21:24 94 21 12/23/17 20:00 97.9 85 18 137/83 (101) 94 12/23/17 20:00 85 12/23/17 19:00 94 Room Air 12/23/17 16:00 97.8 85 18 130/72 (91) 93 12/23/17 16:00 85 12/23/17 14:00 77 12/23/17 12:00 97.9 86 22 111/67 (82) 100 12/23/17 12:00 83 12/23/17 10:53 97 5.00 12/23/17 10:00 88 12/23/17 08:00 80 12/23/17 08:00 97.9 80 13 120/69 (86) 100 General: Alert and Oriented, No acute distress Eye: EOMI Respiratory: Non-labored respirations Cardiology: Normal rate Neurologic: Alert, Oriented, Normal DTR's Psychiatric: Cooperative, Appropriate mood & affect Exam Comments ox 3, no aphasia, follows, articulate, eomi, ou 3-2mm, mild reduced left nlf, no drift but slight left ue dystaxia and left le 5-/5, mild reduced pin distal left hand, gait not assessed 2/2 fall risk Problem Qualifiers (1) HTN (hypertension): Qualified Codes: I10 - Essential (primary) hypertension Vance Oh MD Dec 24, 2017 07:57
[2017-12-24 08:00] VITALS: BP 143/79; PULSE 104; RESP 18; TEMP 98.2; O2SAT 93
[2017-12-24] MEDS: DOCUSATE SODIUM 50 MG/SENNA 8.6 MG TAB PO SCH (09:00)
[2017-12-24] MEDS: INSULIN ASPART SUPPLEMENTAL SCALE SQ SCH ×2 (09:00→11:46)
--- NOTE | 2017-12-24 09:13 | HHI.NSPN ---
(Bren Nation) Note Status Status: Progress Note (Bren Nation) Interval History Interval History This is a 57 yo male with history of arterial hypertension that presented to [facility] with difficulty with ambulation and left-sided weakness . He also has history of hyperlipidemia. He reports that he woke up to go to the bathroom at 5am and everything was normal. He then woke up at 7am and had left- sided weakness He has a past medical history of hypertension for approximately 10 years, patient on multiple antihypertensive meds available report from - Clonidine , and other meds which he ran out of and did not refill. In addition he takes Losartan and Simvastatin. The patient relates that he took his losartan at approximately 5 AM. He was very hypertensive this morning, with a BP of 228/153 , and was started on a Nicardipine infusion. CT brain noted acute infarction with a 6 mm focal area of hemorrhage without midline shift or mass effect right parietal lobe area. Dr. Oh was notified per ED physician Dr. العلي, Ivett bolus was initiated for seizure prophylaxis. He denies any nauseous or vomiting. No seizure activity. No tongue biting. No incontinence of stool or urine. No tonic-clonic movement seen. Neurosurgical consultation was requested 12/24: reports to be feeling well, numbness improving left side, still reports slightly weaker than right (Bren Nation) Labs, Micro, & Vital Signs Results Date Time Temp Pulse Resp B/P (MAP) Pulse Ox O2 Delivery O2 Flow Rate FiO2 12/24/17 07:50 93 93 12/24/17 05:07 97 Nasal Cannula 2.00 12/24/17 04:00 82 12/24/17 04:00 98.6 82 17 126/71 (89) 97 12/24/17 00:00 98.3 85 17 135/84 (101) 94 12/24/17 00:00 85 12/23/17 21:24 94 21 12/23/17 20:00 97.9 85 18 137/83 (101) 94 12/23/17 20:00 85 12/23/17 19:00 94 Room Air 12/23/17 16:00 97.8 85 18 130/72 (91) 93 12/23/17 16:00 85 12/23/17 14:00 77 12/23/17 12:00 97.9 86 22 111/67 (82) 100 12/23/17 12:00 83 12/23/17 10:53 97 5.00 12/23/17 10:00 88 Constitutional Vital Signs Date Time Temp Pulse Resp B/P (MAP) Pulse Ox O2 Delivery O2 Flow Rate FiO2 12/24/17 07:50 93 93 12/24/17 05:07 97 Nasal Cannula 2.00 12/24/17 04:00 82 12/24/17 04:00 98.6 82 17 126/71 (89) 97 12/24/17 00:00 98.3 85 17 135/84 (101) 94 12/24/17 00:00 85 12/23/17 21:24 94 21 12/23/17 20:00 97.9 85 18 137/83 (101) 94 12/23/17 20:00 85 12/23/17 19:00 94 Room Air 12/23/17 16:00 97.8 85 18 130/72 (91) 93 12/23/17 16:00 85 12/23/17 14:00 77 12/23/17 12:00 97.9 86 22 111/67 (82) 100 12/23/17 12:00 83 12/23/17 10:53 97 5.00 12/23/17 10:00 88 (Bren Nation) Physical Exam Mr. Gipson is alert, awake and oriented to time, place and person. Speech is fluent. Higher cognitive functions are normal. HENT: normocephalic, atraumatic. nonicteric sclera. Cranial nerve examination demonstrates the pupils to be equal, round, and reactive to light. Extra-ocular movements are intact. Facial motor and sensory function are normal and symmetrical. Gross hearing is intact, bilaterally. The uvula is midline and elevates symmetrically with the soft palate. Sternocleidomastoid and trapezius muscles have normal and symmetrical strength. Other cranial nerves are intact. Neck is soft and supple. Muscle testing reveals normal bulk and tone overall without rigidity, spasticity , fasciculations, or atrophy. Moves all major muscle groups well with 4 to 4+/ 5 left side paresis. Sensory examination is mildly decreased to light touch left lower extremity. Deep tendon reflexes are 1+ and symmetrical in the biceps, triceps, and brachioradialis, bilaterally, in the upper extremities. In the lower extremities, the patellar and Achilles are 1+, bilaterally. There is a bilateral plantar flexion response. There is no clonus or other abnormal reflexes noted. Cerebellar examination is intact to [id number] test. Respiratory: clear to auscultate bilaterally Heart: regular rate and rhythm (Bren Nation) Mr. Gipson is alert, awake and oriented to time, place and person. Speech is fluent. Higher cognitive functions are normal. HENT: normocephalic, atraumatic. nonicteric sclera. Cranial nerve examination demonstrates the pupils to be equal, round, and reactive to light. Extra-ocular movements are intact. Facial motor and sensory function are normal and symmetrical. Gross hearing is intact, bilaterally. The uvula is midline and elevates symmetrically with the soft palate. Sternocleidomastoid and trapezius muscles have normal and symmetrical strength. Other cranial nerves are intact. Neck is soft and supple. Muscle testing reveals normal bulk and tone overall without rigidity, spasticity , fasciculations, or atrophy. Moves all major muscle groups well with 4 to 4+/ 5 left side paresis. Sensory examination is mildly decreased to light touch left lower extremity. Deep tendon reflexes are 1+ and symmetrical in the biceps, triceps, and brachioradialis, bilaterally, in the upper extremities. In the lower extremities, the patellar and Achilles are 1+, bilaterally. There is a bilateral plantar flexion response. There is no clonus or other abnormal reflexes noted. Cerebellar examination is intact to [id number] test. Respiratory: clear to auscultate bilaterally Heart: regular rate and rhythm (Samson Franks MD) Medications Medications Current Medications Current Medications Medications (Trade) Dose Ordered Sig/Mark Route PRN Reason Start Time Stop Time Status Last Admin Dose Admin Sodium Chloride 1,000 ml @ 42 mls/hr [id number] IV 12/22/17 08:28 12/22/17 10:00 Sodium Chloride (NS Flush) 2 ml UNSCH PRN IV FLUSH FLUSH AFTER USING IV ACCESS 12/22/17 08:30 Sodium Chloride (NS Flush) 2 ml BID IV FLUSH 12/22/17 09:00 12/22/17 21:00 Acetaminophen (Tylenol) 650 mg Q6H PRN PO PAIN 1-10 AND/OR FEVER >101F 12/22/17 08:30 12/22/17 15:00 Famotidine (Pepcid Inj) 20 mg Q12HR IV PUSH 12/22/17 10:00 12/22/17 21:05 Ondansetron HCl (Zofran Inj) 4 mg Q6H PRN IV PUSH NAUSEA OR VOMITING 12/22/17 08:30 Albuterol/ Ipratropium (Duoneb Neb) 1 ampule Q6HR NEB INH 12/22/17 10:00 12/23/17 07:37 Albuterol/ Ipratropium (Duoneb Neb) 1 ampule Q2HR NEB PRN INH WHEEZING 12/22/17 08:30 Miscellaneous Information 1 Q361D XX 12/22/17 08:30 12/22/17 08:30 Chlorhexidine Gluconate (Chlorhexidine 2% Cloth) 3 pack Taper DAILY@04 TOP 12/23/17 04:00 12/19/18 03:59 Chlorhexidine Gluconate (Chlorhexidine 2% Cloth) 3 pack UNSCH PRN TOP HYGIENIC CARE 12/22/17 08:30 Senna/Docusate Sodium (Kayleigh-Colace) 1 tab BID PO 12/22/17 10:00 12/22/17 21:05 Magnesium Hydroxide (Milk Of Magnesia Liq) 30 ml Q12H PRN PO Mild constipation 12/22/17 08:30 Sennosides (Senokot) 17.2 mg Q12H PRN PO Moderate constipation 12/22/17 08:30 Bisacodyl (Dulcolax Supp) 10 mg DAILY PRN RECTAL SEVERE CONSITIPATION 12/22/17 08:30 Lactulose (Lactulose Liq) 30 ml DAILY PRN PO SEVERE CONSITIPATION 12/22/17 08:30 Dextrose (D50w (Vial) Inj) 50 ml UNSCH PRN IV PUSH HYPOGLYCEMIA-SEE COMMENTS 12/22/17 09:15 12/22/17 15:01 Glucagon (Glucagon Inj) 1 mg UNSCH PRN OTHER HYPOGLYCEMIA-SEE COMMENTS 12/22/17 09:15 Insulin Aspart (NovoLOG SUPPLEMENTAL SCALE) 1 ACHS SLIDING SCALE SQ 12/22/17 12:00 Multivitamins 10 ml/Folic Acid 1 mg/Sodium Chloride 510.2 ml @ 125 mls/hr Q24H IV 12/22/17 11:00 12/27/17 10:59 12/22/17 13:15 Thiamine HCl 100 mg/Sodium Chloride 101 ml @ 100 mls/hr Q24H IV 12/22/17 11:00 12/25/17 10:59 12/22/17 13:14 Levetriacetam 500 mg/Sodium Chloride 105 ml @ 420 mls/hr Q12HR IV 12/22/17 21:00 12/22/17 21:05 Albuterol Sulfate (Proair Hfa Inh) 2 puff Q4H PRN INH SHORTNESS OF BREATH 12/22/17 13:15 12/22/17 16:37 Atenolol (Tenormin) 100 mg DAILY PO 12/22/17 13:15 12/22/17 16:29 Clonidine (Catapres) 0.1 mg BID PO 12/22/17 13:15 12/22/17 21:52 Fenofibrate (Tricor) 145 mg DAILY PO 12/22/17 14:45 12/22/17 16:29 Budesonide/ Formoterol Fumarate (Symbicort 160-4.5 Mcg Inh) 2 puff BID INH 12/22/17 21:00 12/22/17 21:00 Losartan Potassium (Cozaar) 100 mg DAILY PO 12/22/17 15:00 12/22/17 15:00 Atorvastatin Calcium (Lipitor) 40 mg DAILY PO 12/22/17 14:30 12/22/17 14:59 Nicardipine HCl 25 mg/Sodium Chloride 250 ml @ 50 mls/hr TITRATE PRN IV Blood pressure management 12/22/17 13:15 12/22/17 15:00 Hydrochlorothiazide (Hydrodiuril) 25 mg DAILY PO 12/22/17 15:00 12/22/17 15:00 (Bren Nation) Current Medications Current Medications Nicardipine HCl 25 mg/Sodium Chloride 250 ml @ 0 mls/hr TITRATE ONCE IV Last administered on 12/22/17at 08:23; Start 12/22/17 at 08:00; Stop 12/22/17 at 08:01; Status DC Levetriacetam 100 ml @ 400 mls/hr BOLUS ONCE IV ; Start 12/22/17 at 08:30; Stop 12/22/17 at 08:44; Status DC Sodium Chloride 1,000 ml @ 42 mls/hr [id number] IV Last administered on 12/24/17at 10:10; Start 12/22/17 at 08:28 Sodium Chloride (NS Flush) 2 ml UNSCH PRN IV FLUSH FLUSH AFTER USING IV ACCESS ; Start 12/22/17 at 08:30 Sodium Chloride (NS Flush) 2 ml BID IV FLUSH Last administered on 12/24/17at 10: 13; Start 12/22/17 at 09:00 Acetaminophen (Tylenol) 650 mg Q6H PRN PO PAIN 1-10 AND/OR FEVER >101F Last administered on 12/22/17at 15:00; Start 12/22/17 at 08:30 Famotidine (Pepcid Inj) 20 mg Q12HR IV PUSH Last administered on 12/24/17at 10:13 ; Start 12/22/17 at 10:00 Ondansetron HCl (Zofran Inj) 4 mg Q6H PRN IV PUSH NAUSEA OR VOMITING; Start 12/22/17 at 08:30 Albuterol/ Ipratropium (Duoneb Neb) 1 ampule Q6HR NEB INH Last administered on 12/24/17at 07:49; Start 12/22/17 at 10:00 Albuterol/ Ipratropium (Duoneb Neb) 1 ampule Q2HR NEB PRN INH WHEEZING; Start 12/22/17 at 08:30 Miscellaneous Information 1 Q361D XX Last administered on 12/22/17at 08:30; Start 12/22/17 at 08:30 Chlorhexidine Gluconate (Chlorhexidine 2% Cloth) 3 pack Taper DAILY@04 TOP ; Start 12/23/17 at 04:00; Stop 12/19/18 at 03:59 Chlorhexidine Gluconate (Chlorhexidine 2% Cloth) 3 pack UNSCH PRN TOP HYGIENIC CARE; Start 12/22/17 at 08:30 Senna/Docusate Sodium (Kayleigh-Colace) 1 tab BID PO Last administered on 12/22/17at 21:05; Start 12/22/17 at 10:00 Magnesium Hydroxide (Milk Of Magnesia Liq) 30 ml Q12H PRN PO Mild constipation ; Start 12/22/17 at 08:30 Sennosides (Senokot) 17.2 mg Q12H PRN PO Moderate constipation; Start 12/22/17 at 08:30 Bisacodyl (Dulcolax Supp) 10 mg DAILY PRN RECTAL SEVERE CONSITIPATION; Start at 08:30 Lactulose (Lactulose Liq) 30 ml DAILY PRN PO SEVERE CONSITIPATION; Start at 08:30 Dextrose (D50w (Vial) Inj) 50 ml UNSCH PRN IV PUSH HYPOGLYCEMIA-SEE COMMENTS Last administered on 12/22/17at 15:01; Start 12/22/17 at 09:15 Glucagon (Glucagon Inj) 1 mg UNSCH PRN OTHER HYPOGLYCEMIA-SEE COMMENTS; Start 12/22/17 at 09:15 Insulin Aspart (NovoLOG SUPPLEMENTAL SCALE) 1 ACHS SLIDING SCALE SQ ; Start 12/22/17 at 12:00 Multivitamins 10 ml/Folic Acid 1 mg/Sodium Chloride 510.2 ml @ 125 mls/hr Q24H IV Last administered on 12/24/17at 11:36; Start 12/22/17 at 11:00; Stop 12/27/17 at 10:59 Thiamine HCl 100 mg/Sodium Chloride 101 ml @ 100 mls/hr Q24H IV Last administered on 12/24/17at 11:46; Start 12/22/17 at 11:00; Stop 12/25/17 at 10:59 Levetriacetam 500 mg/Sodium Chloride 105 ml @ 420 mls/hr Q12HR IV Last administered on 12/23/17at 20:26; Start 12/22/17 at 21:00; Stop 12/24/17 at 08:00; Status DC Gadodiamide (Omniscan Pf Inj) 20 ml STK-MED ONCE IVCONTRAST Last administered on 12/22/17at 12:01; Start 12/22/17 at 12:01; Stop 12/22/17 at 12:02; Status DC Albuterol Sulfate (Proair Hfa Inh) 2 puff Q4H PRN INH SHORTNESS OF BREATH Last administered on 12/22/17 16:37; Start 12/22/17 at 13:15 Atenolol (Tenormin) 100 mg DAILY PO Last administered on 12/24/17 09:25; Start 12/22/17 at 13:15 Clonidine (Catapres) 0.1 mg BID PO Last administered on 12/24/17 09:25; Start 12/22/17 at 13:15 Fenofibrate (Tricor) 145 mg DAILY PO Last administered on 12/24/17 09:25; Start 12/22/17 at 14:45 Budesonide/ Formoterol Fumarate (Symbicort 160-4.5 Mcg Inh) 2 puff BID INH Last administered on 12/23/17 20:25; Start 12/22/17 at 21:00 Losartan Potassium (Cozaar) 100 mg DAILY PO Last administered on 12/24/17 09:25 ; Start 12/22/17 at 15:00 Atorvastatin Calcium (Lipitor) 40 mg DAILY PO Last administered on 12/24/17 10: 12; Start 12/22/17 at 14:30 Nicardipine HCl 25 mg/Sodium Chloride 250 ml @ 50 mls/hr TITRATE PRN IV Blood pressure management Last administered on 12/22/17 15:00; Start 12/22/17 at 13:15 Hydrochlorothiazide (Hydrodiuril) 25 mg DAILY PO Last administered on 12/24/17 09:25; Start 12/22/17 at 15:00 Midazolam HCl (Versed Inj) 5 mg STK-MED ONCE .ROUTE Last administered on 10:06; Start 12/23/17 at 09:48; Stop 12/23/17 at 09:49; Status DC Fentanyl Citrate (fentaNYL INJ) 100 mcg STK-MED ONCE .ROUTE Last administered on 12/23/17 10:07; Start 12/23/17 at 09:48; Stop 12/23/17 at 09:49; Status DC Cefazolin Sodium 1000 mg/Sodium Chloride 100 ml @ 200 mls/hr ONCE ONCE IV Last administered on 12/23/17 10:15; Start 12/23/17 at 10:15; Stop 12/23/17 at 10: 44; Status DC Fentanyl Citrate (fentaNYL INJ) 100 mcg STK-MED ONCE .ROUTE ; Start 12/23/17 at 11:24; Stop 12/23/17 at 11:25; Status DC Pneumococcal Polyvalent Vaccine (Pneumovax-23 Inj) 25 mcg ONCE ONCE IM Last administered on 12/24/17at 09:24; Start 12/24/17 at 10:00; Stop 12/24/17 at 10:01; Status DC Influenza Virus Vaccine (Flu (Quadrivalent) Vaccine Inj) 0.5 ml ONCE ONCE IM Last administered on 12/24/17at 09:23; Start 12/24/17 at 10:00; Stop 12/24/17 at 10: 01; Status DC Iohexol (Omnipaque 350 Inj) 79 ml STK-MED ONCE IVCONTRAST Last administered on 12/22/17at 18:17; Start 12/22/17 at 18:17; Stop 12/24/17 at 14:02; Status DC (Samson Franks MD) Medications Current Medications Current Medications Medications (Trade) Dose Ordered Sig/Mark Route PRN Reason Start Time Stop Time Status Last Admin Dose Admin Sodium Chloride 1,000 ml @ 42 mls/hr [id number] IV 12/22/17 08:28 12/22/17 10:00 Sodium Chloride (NS Flush) 2 ml UNSCH PRN IV FLUSH FLUSH AFTER USING IV ACCESS 12/22/17 08:30 Sodium Chloride (NS Flush) 2 ml BID IV FLUSH 12/22/17 09:00 12/23/17 20:26 Acetaminophen (Tylenol) 650 mg Q6H PRN PO PAIN 1-10 AND/OR FEVER >101F 12/22/17 08:30 12/22/17 15:00 Famotidine (Pepcid Inj) 20 mg Q12HR IV PUSH 12/22/17 10:00 12/23/17 20:26 Ondansetron HCl (Zofran Inj) 4 mg Q6H PRN IV PUSH NAUSEA OR VOMITING 12/22/17 08:30 Albuterol/ Ipratropium (Duoneb Neb) 1 ampule Q6HR NEB INH 12/22/17 10:00 12/24/17 07:49 Albuterol/ Ipratropium (Duoneb Neb) 1 ampule Q2HR NEB PRN INH WHEEZING 12/22/17 08:30 Miscellaneous Information 1 Q361D XX 12/22/17 08:30 12/22/17 08:30 Chlorhexidine Gluconate (Chlorhexidine 2% Cloth) 3 pack Taper DAILY@04 TOP 12/23/17 04:00 12/19/18 03:59 Chlorhexidine Gluconate (Chlorhexidine 2% Cloth) 3 pack UNSCH PRN TOP HYGIENIC CARE 12/22/17 08:30 Senna/Docusate Sodium (Kayleigh-Colace) 1 tab BID PO 12/22/17 10:00 12/22/17 21:05 Magnesium Hydroxide (Milk Of Magnesia Liq) 30 ml Q12H PRN PO Mild constipation 12/22/17 08:30 Sennosides (Senokot) 17.2 mg Q12H PRN PO Moderate constipation 12/22/17 08:30 Bisacodyl (Dulcolax Supp) 10 mg DAILY PRN RECTAL SEVERE CONSITIPATION 12/22/17 08:30 Lactulose (Lactulose Liq) 30 ml DAILY PRN PO SEVERE CONSITIPATION 12/22/17 08:30 Dextrose (D50w (Vial) Inj) 50 ml UNSCH PRN IV PUSH HYPOGLYCEMIA-SEE COMMENTS 12/22/17 09:15 12/22/17 15:01 Glucagon (Glucagon Inj) 1 mg UNSCH PRN OTHER HYPOGLYCEMIA-SEE COMMENTS 12/22/17 09:15 Insulin Aspart (NovoLOG SUPPLEMENTAL SCALE) 1 ACHS SLIDING SCALE SQ 12/22/17 12:00 Multivitamins 10 ml/Folic Acid 1 mg/Sodium Chloride 510.2 ml @ 125 mls/hr Q24H IV 12/22/17 11:00 12/27/17 10:59 12/23/17 10:54 Thiamine HCl 100 mg/Sodium Chloride 101 ml @ 100 mls/hr Q24H IV 12/22/17 11:00 12/25/17 10:59 12/23/17 10:54 Albuterol Sulfate (Proair Hfa Inh) 2 puff Q4H PRN INH SHORTNESS OF BREATH 12/22/17 13:15 12/22/17 16:37 Atenolol (Tenormin) 100 mg DAILY PO 12/22/17 13:15 12/23/17 11:42 Clonidine (Catapres) 0.1 mg BID PO 12/22/17 13:15 12/23/17 20:26 Fenofibrate (Tricor) 145 mg DAILY PO 12/22/17 14:45 12/23/17 11:42 Budesonide/ Formoterol Fumarate (Symbicort 160-4.5 Mcg Inh) 2 puff BID INH 12/22/17 21:00 12/23/17 20:25 Losartan Potassium (Cozaar) 100 mg DAILY PO 12/22/17 15:00 12/23/17 11:42 Atorvastatin Calcium (Lipitor) 40 mg DAILY PO 12/22/17 14:30 12/23/17 11:42 Nicardipine HCl 25 mg/Sodium Chloride 250 ml @ 50 mls/hr TITRATE PRN IV Blood pressure management 12/22/17 13:15 12/22/17 15:00 Hydrochlorothiazide (Hydrodiuril) 25 mg DAILY PO 12/22/17 15:00 12/23/17 11:42 Pneumococcal Polyvalent Vaccine (Pneumovax-23 Inj) 25 mcg ONCE ONCE IM 12/24/17 10:00 12/24/17 10:01 Influenza Virus Vaccine (Flu (Quadrivalent) Vaccine Inj) 0.5 ml ONCE ONCE IM 12/24/17 10:00 12/24/17 10:01 (Bren Nation) Current Medications Current Medications Nicardipine HCl 25 mg/Sodium Chloride 250 ml @ 0 mls/hr TITRATE ONCE IV Last administered on 12/22/17at 08:23; Start 12/22/17 at 08:00; Stop 12/22/17 at 08:01; Status DC Levetriacetam 100 ml @ 400 mls/hr BOLUS ONCE IV ; Start 12/22/17 at 08:30; Stop 12/22/17 at 08:44; Status DC Sodium Chloride 1,000 ml @ 42 mls/hr [id number] IV Last administered on 12/24/17at 10:10; Start 12/22/17 at 08:28 Sodium Chloride (NS Flush) 2 ml UNSCH PRN IV FLUSH FLUSH AFTER USING IV ACCESS ; Start 12/22/17 at 08:30 Sodium Chloride (NS Flush) 2 ml BID IV FLUSH Last administered on 12/24/17at 10: 13; Start 12/22/17 at 09:00 Acetaminophen (Tylenol) 650 mg Q6H PRN PO PAIN 1-10 AND/OR FEVER >101F Last administered on 12/22/17at 15:00; Start 12/22/17 at 08:30 Famotidine (Pepcid Inj) 20 mg Q12HR IV PUSH Last administered on 12/24/17at 10:13 ; Start 12/22/17 at 10:00 Ondansetron HCl (Zofran Inj) 4 mg Q6H PRN IV PUSH NAUSEA OR VOMITING; Start 12/22/17 at 08:30 Albuterol/ Ipratropium (Duoneb Neb) 1 ampule Q6HR NEB INH Last administered on 12/24/17at 07:49; Start 12/22/17 at 10:00 Albuterol/ Ipratropium (Duoneb Neb) 1 ampule Q2HR NEB PRN INH WHEEZING; Start 12/22/17 at 08:30 Miscellaneous Information 1 Q361D XX Last administered on 12/22/17at 08:30; Start 12/22/17 at 08:30 Chlorhexidine Gluconate (Chlorhexidine 2% Cloth) 3 pack Taper DAILY@04 TOP ; Start 12/23/17 at 04:00; Stop 12/19/18 at 03:59 Chlorhexidine Gluconate (Chlorhexidine 2% Cloth) 3 pack UNSCH PRN TOP HYGIENIC CARE; Start 12/22/17 at 08:30 Senna/Docusate Sodium (Kayleigh-Colace) 1 tab BID PO Last administered on 12/22/17at 21:05; Start 12/22/17 at 10:00 Magnesium Hydroxide (Milk Of Magnesia Liq) 30 ml Q12H PRN PO Mild constipation ; Start 12/22/17 at 08:30 Sennosides (Senokot) 17.2 mg Q12H PRN PO Moderate constipation; Start 12/22/17 at 08:30 Bisacodyl (Dulcolax Supp) 10 mg DAILY PRN RECTAL SEVERE CONSITIPATION; Start at 08:30 Lactulose (Lactulose Liq) 30 ml DAILY PRN PO SEVERE CONSITIPATION; Start at 08:30 Dextrose (D50w (Vial) Inj) 50 ml UNSCH PRN IV PUSH HYPOGLYCEMIA-SEE COMMENTS Last administered on 12/22/17at 15:01; Start 12/22/17 at 09:15 Glucagon (Glucagon Inj) 1 mg UNSCH PRN OTHER HYPOGLYCEMIA-SEE COMMENTS; Start 12/22/17 at 09:15 Insulin Aspart (NovoLOG SUPPLEMENTAL SCALE) 1 ACHS SLIDING SCALE SQ ; Start 12/22/17 at 12:00 Multivitamins 10 ml/Folic Acid 1 mg/Sodium Chloride 510.2 ml @ 125 mls/hr Q24H IV Last administered on 12/24/17at 11:36; Start 12/22/17 at 11:00; Stop 12/27/17 at 10:59 Thiamine HCl 100 mg/Sodium Chloride 101 ml @ 100 mls/hr Q24H IV Last administered on 12/24/17at 11:46; Start 12/22/17 at 11:00; Stop 12/25/17 at 10:59 Levetriacetam 500 mg/Sodium Chloride 105 ml @ 420 mls/hr Q12HR IV Last administered on 12/23/17 20:26; Start 12/22/17 at 21:00; Stop 12/24/17 at 08:00; Status DC Gadodiamide (Omniscan Pf Inj) 20 ml STK-MED ONCE IVCONTRAST Last administered on 12/22/17at 12:01; Start 12/22/17 at 12:01; Stop 12/22/17 at 12:02; Status DC Albuterol Sulfate (Proair Hfa Inh) 2 puff Q4H PRN INH SHORTNESS OF BREATH Last administered on 12/22/17 16:37; Start 12/22/17 at 13:15 Atenolol (Tenormin) 100 mg DAILY PO Last administered on 12/24/17at 09:25; Start 12/22/17 at 13:15 Clonidine (Catapres) 0.1 mg BID PO Last administered on 12/24/17 09:25; Start 12/22/17 at 13:15 Fenofibrate (Tricor) 145 mg DAILY PO Last administered on 12/24/17at 09:25; Start 12/22/17 at 14:45 Budesonide/ Formoterol Fumarate (Symbicort 160-4.5 Mcg Inh) 2 puff BID INH Last administered on 12/23/17at 20:25; Start 12/22/17 at 21:00 Losartan Potassium (Cozaar) 100 mg DAILY PO Last administered on 12/24/17 09:25 ; Start 12/22/17 at 15:00 Atorvastatin Calcium (Lipitor) 40 mg DAILY PO Last administered on 12/24/17 10: 12; Start 12/22/17 at 14:30 Nicardipine HCl 25 mg/Sodium Chloride 250 ml @ 50 mls/hr TITRATE PRN IV Blood pressure management Last administered on 12/22/17 15:00; Start 12/22/17 at 13:15 Hydrochlorothiazide (Hydrodiuril) 25 mg DAILY PO Last administered on 12/24/17 09:25; Start 12/22/17 at 15:00 Midazolam HCl (Versed Inj) 5 mg STK-MED ONCE .ROUTE Last administered on 10:06; Start 12/23/17 at 09:48; Stop 12/23/17 at 09:49; Status DC Fentanyl Citrate (fentaNYL INJ) 100 mcg STK-MED ONCE .ROUTE Last administered on 12/23/17 10:07; Start 12/23/17 at 09:48; Stop 12/23/17 at 09:49; Status DC Cefazolin Sodium 1000 mg/Sodium Chloride 100 ml @ 200 mls/hr ONCE ONCE IV Last administered on 12/23/17 10:15; Start 12/23/17 at 10:15; Stop 12/23/17 at 10: 44; Status DC Fentanyl Citrate (fentaNYL INJ) 100 mcg STK-MED ONCE .ROUTE ; Start 12/23/17 at 11:24; Stop 12/23/17 at 11:25; Status DC Pneumococcal Polyvalent Vaccine (Pneumovax-23 Inj) 25 mcg ONCE ONCE IM Last administered on 12/24/17 09:24; Start 12/24/17 at 10:00; Stop 12/24/17 at 10:01; Status DC Influenza Virus Vaccine (Flu (Quadrivalent) Vaccine Inj) 0.5 ml ONCE ONCE IM Last administered on 12/24/17 09:23; Start 12/24/17 at 10:00; Stop 12/24/17 at 10: 01; Status DC Iohexol (Omnipaque 350 Inj) 79 ml STK-MED ONCE IVCONTRAST Last administered on 2/4/18at 18:17; Start 12/22/17 at 18:17; Stop 12/24/17 at 14:02; Status DC (Samson Franks MD) Medical Decision Making MDM Remarks 57 y/o male with acute right hemorrhagic CVA, most likely hypertensive hypertensive crisis (Bren Nation) Plan Plan Remarks neuro exam stable cont blood pressure control per medicine Neurology following for stroke work up PT, OT nonchemical dvt prophylaxis in view of acute ICH (Bren Nation) Plan Remarks 57 y/o male with acute right hemorrhagic CVA, most likely hypertensive hypertensive crisis (Samson Franks MD) Attending Statement As above Continue nonoperative management Blood pressure management Cleared per neurosurgery for discharge The exam, history, and the medical decision-making described in the above note were completed with the assistance of the mid-level provider. I reviewed and agree with the findings presented. I attest that I had a [id number] encounter with the patient on the same day, and personally performed and documented my assessment and findings in the medical record. (Samson Franks MD) Bren Nation Dec 24, 2017 09:13 Samson Franks MD Dec 24, 2017 14:40
[2017-12-24] MEDS: HYDROCHLOROTHIAZIDE 25 MG TAB PO SCH (09:25)
[2017-12-24] MEDS: FENOFIBRATE 145 MG TAB PO SCH (09:25)
[2017-12-24] MEDS: cloNIDine HCL 0.1 MG TAB PO SCH (09:25)
[2017-12-24] MEDS: LOSARTAN 50 MG TAB PO SCH (09:25)
[2017-12-24] MEDS: ATENOLOL 100 MG TAB PO SCH (09:25)
[2017-12-24] MEDS ORDERED: PNEUMOCOCCAL POLYVALENT INJ 25 MCG/0.5 ML SYR IM ONE (10:00)
[2017-12-24] MEDS ORDERED: INFLUENZA VIRUS VACCINE (QUADRIVALENT) 0.5 ML SYR IM ONE (10:00)
[2017-12-24] MEDS: SODIUM CHLOR 0.9% 1000 ML INJ 1,000 ML IV SCH (10:10)
[2017-12-24] MEDS: ATORVASTATIN 40 MG TAB PO SCH (10:12)
[2017-12-24] MEDS: FAMOTIDINE 20 MG/2 ML VIAL IV PUSH SCH (10:13)
[2017-12-24] MEDS: SODIUM CHLORIDE 0.9% FLUSH 10 ML FLUSH IV FLUSH SCH (10:13)
[2017-12-24] MEDS: MULTIVITAMIN INJ 10 ML, FOLIC ACID INJ 1 MG in SODIUM CHLORID 0.9% 500 ML INJ 500 ML IV SCH (11:36)
[2017-12-24] MEDS: THIAMINE INJ 100 MG in SODIUM CHLORIDE 0.9% INJ 100 ML IV SCH (11:46)
[2017-12-24 12:00] VITALS: BP 150/96; PULSE 98; RESP 17; TEMP 98; O2SAT 95
[2017-12-24] MEDS ORDERED: HYDR25TA5 PO (14:59)
[2017-12-24] MEDS ORDERED: [UNRECOGNIZED DRUG - CODE] IV PUSH (14:59)
--- NOTE | 2017-12-24 15:00 | HHI.FF ---
Face to Face Verification Diagnosis: (1) Acute right MCA stroke (2) HTN (hypertension) Physical Therapy Order: Evaluate and Treat Occupational Therapy Order: Evaluate and Treat Home Health Nursing Order: Medical education Nursing assessment with vital signs I have seen patient Alejandro Gipson on 12/24/17. My clinical findings support the need for the requested home health care services because: Ltd mobility - disease progression I certify that my clinical findings support that this patient is homebound because: Unsteady gait/balance Unsafe to leave home unassisted Genevieve Brock MD Dec 24, 2017 15:00
--- NOTE | 2017-12-24 15:26 | EKG ---
Date Performed: 12/23/2017 Time Performed: 13:31:45 PTAGE: 57 years EKG: Sinus rhythm SEPTAL MYOCARDIAL INFARCTION , OF INDETERMINATE AGE When compared to previous tracing, nthere is now evidence of Prior septal infarction. Clinical corrolation is suggested. ABNORMAL ECG PREVIOUS TRACING : 01/28/2009 00.44 DOCTOR: Wolfgang Garcia Interpretating Date/Time 12/24/2017 15:26:13
--- NOTE | 2017-12-24 16:53 | ECHRPT ---
Indication: CVA/TIA CONCLUSIONS Good LV function, no PFO/ASD, no vegetations seen, no source of intra-cardiac embolism seen. BP: / HR: Rhythm: Technical Quality: Medications The patient was premedicated with IV Versed and IV Fentanyl.. Complications There were no complications prior to, during or in recovery from the transesophag eal echocardiogram.. Proc. Components FINDINGS LEFT VENTRICLE Normal left ventricular size and wall thickness. The left ventricular systolic function is normal wi th an estimated ejection fraction in the range of 60-65%. Left ventricular diastolic function parameters a re normal. RIGHT VENTRICLE The right ventricular size is normal. LEFT ATRIUM The left atrial size is normal. RIGHT ATRIUM The right atrial size is normal. ATRIAL APPENDAGES Left atrial appendage not well visualized. ATRIAL SEPTUM No atrial level shunt is observed with agitated saline contrast administration. MITRAL VALVE Structurally normal mitral valve. Trace mitral valve regurgitation. AORTIC VALVE Trileaflet aortic valve. No aortic valve stenosis or regurgitation. TRICUSPID VALVE There is trace tricuspid valve regurgitation. PERICADIUM No pericardial effusion. Allen Mcclendon MD (Electronically Signed) Final Date:24 December 2017 16:52
[2017-12-24 23:51] LABS: HOMOCYSTEINE 8.7 umol/L (<11.4)
[2017-12-25 13:52] LABS: DRVVT 1:1 MIX ND (CORRECTED); DRVVT CONFIRM ND (NEGATIVE); HEXAGONAL PHASE CONFIRM ND (NEGATIVE)
[2017-12-25 23:52] LABS: FACTOR VIII(8) ACTIVITY 218 (50-180)
[2017-12-26 03:51] LABS: ANTI-THROMBIN III ACT 100 (80-120)
[2017-12-26 13:19] LABS: PROTEIN C ACTIVITY 145 % (70 - 150); PROTEIN S ACTIVITY 161 % (65 - 160)
[2017-12-26 17:53] LABS: BETA2-GLYCOPROTEIN IGG <9 SGU (< OR = 20)
[2017-12-27 03:50] LABS: BETA2-GLYCOPROTEIN IGA <9 SAU (< OR = 20); BETA2-GLYCOPROTEIN IGM <9 SMU (< OR = 20)
[2017-12-27 11:06] LABS: CARDIOLIPIN IGG AB <9.4 GPL; CARDIOLIPIN IGM AB 14.5 MPL
[2017-12-27 13:53] LABS: PHOSPHATIDYLSERINE AB IGA LESS THAN 20.0 U/mL (< 20.0); PHOSPHATIDYLSERINE AB IGG LESS THAN 10.0 U/mL (< 11.0); PHOSPHATIDYLSERINE AB IGM LESS THAN 25.0 U/mL (< 25.0)
== END 2017-12-24 16:10 | disposition home health service (06) | DRG 41 ==
LOC: PHED 07:41 → PHEDA 08:31 → N03B 09:52
PROVIDERS: ADMIT Hospitalist; ATTEND Hospitalist
PROC: 0JH632Z Insertion of Monitoring Device into Chest Subcutaneous Tissue and Fascia, Percutaneous Approach (ICD-10-PCS; principal; 2017-12-22)
PROC: 4A1234Z Monitoring of Cardiac Electrical Activity, Percutaneous Approach (ICD-10-PCS; 2017-12-22)
PROC: B246ZZ4 Ultrasonography of Right and Left Heart, Transesophageal (ICD-10-PCS; 2017-12-23)
DX: I61.1 Nontraumatic intracerebral hemorrhage in hemisphere, cortical (principal); I16.9 Hypertensive crisis, unspecified; G81.94 Hemiplegia, unspecified affecting left nondominant side; I10 Essential (primary) hypertension; E78.5 Hyperlipidemia, unspecified; R00.0 Tachycardia, unspecified; R29.703 NIHSS score 3; J44.9 Chronic obstructive pulmonary disease, unspecified; F10.10 Alcohol abuse, uncomplicated; F17.220 Nicotine dependence, chewing tobacco, uncomplicated; F12.10 Cannabis abuse, uncomplicated; Y90.0 Blood alcohol level of less than 20 mg/100 ml; Z23 Encounter for immunization; Z91.14 Patient's other noncompliance with medication regimen
CPT/HCPCS: 33282; 36430; 70450; 70496; 70498; 70544; 70553; 76937; 80048; 80053; 80307; 81240; 81241; 81291; 82948; 83090; 83735; 84100; 84484; 85025; 85027; 85240; 85300; 85303; 85306; 85307; 85610; 85613; 85730; 86146; 86147; 86148; 87641; 90686; 90732; 93005; 93312; 93320; 93325; 94640; 94664; 96374; 99152; 99153; A9579; C1764; J0690; J1953; J2250; J3010; J3411; J7030; J7040; J7050; Q2038; Q9967

== ENCOUNTER 2018-03-19 09:15 | Observation (INO) | payer OTHER ==
[~2018-03-19] VITALS: Ht 170.2 cm; Wt 106.1 kg
[~2018-03-19 09:15] MED LIST changes: +ADVA250A INH; +ATEN100T PO; -BP MED; +CLON0.1T PO; +FENO160T PO; +HYDR25TA5 PO; -IBUP600T26 PO; -LORTA5 PO; +LOSA100T2 PO; +SIMV80TA PO; +VENTAER INH; +[UNRECOGNIZED DRUG - CODE] IV PUSH
[2018-03-19 09:25] VITALS: BP 138/80; PULSE 81; RESP 17; TEMP 98.6; O2SAT 97
[2018-03-19] MEDS ORDERED: SODIUM CHLORIDE 0.9% FLUSH 10 ML FLUSH IVF PRN (09:30)
--- NOTE | 2018-03-19 09:42 | PD ---
HPI Chief Complaint: Numbness/Tingling Time Seen by Provider: 09:18 Travel History International Travel<30 days: No Contact w/Intl Traveler<30days: No Traveled to known affect area: No History of Present Illness HPI 57-year-old male complains of a wobbly sensation in the left knee. The patient had a stroke 2 months prior. 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 He has been back to work now for 2 weeks. Last night he had about 4 whiskey soda drinks. His reports he was unable to speak at that time. The patient ultimately made it back to bed however had uses walker for the first time in over a week. Patient describes paresthesias involving the trunk and upper extremities with bilateral distribution. No fall. No facial asymmetry or weakness reported. The patient does make note of weakness in the left leg following the stroke and reports that he has had some wobbliness in the left leg which seems to be getting worse and with ambulation. PFSH Past Medical History Arthritis: Yes (lower back, left arm, knees) Asthma: No Autoimmune Disease: No Depression: Yes Heart Rhythm Problems: No Cancer: No Cardiovascular Problems: Yes (HTN) High Cholesterol: Yes Chest Pain: No COPD: Yes Cerebrovascular Accident: Yes Diminished Hearing: No Endocrine: No GERD: No Genitourinary: No Hiatal Hernia: No Hypertension: Yes Immune Disorder: No Musculoskeletal: Yes Neurologic: No Psychiatric: Yes (20 years ago suicidal ideation and recieved counseling) Respiratory: Yes (COPD, emphysema) Migraines: No Seizures: No Ulcer: No Past Surgical History Abdominal Surgery: Yes (cholecystectomy) Body Medical Devices: loop recorder placed 12/23/17 Cardiac Surgery: No Cholecystectomy: Yes Ear Surgery: No Endocrine Surgery: No Eye Surgery: No Genitourinary Surgery: No Gynecologic Surgery: No Oral Surgery: Yes (tonsillectomy) Thoracic Surgery: No Tonsillectomy: Yes Other Surgery: Yes (CYST REMOVED FROM BACK) Social History Alcohol Use: No Tobacco Use: No Substance Use: Yes (marijuana occassionally) Allergies-Medications (Allergen,Severity, Reaction): Coded Allergies: No Known Allergies (Verified Allergy, Unknown, 03/19/18) Reported Meds & Prescriptions Reported Meds & Active Scripts Active Famotidine Inj (Famotidine) 20 Mg/2 Ml Inj 20 Mg IV PUSH Q12HR Hydrochlorothiazide 25 Mg Tab 25 Mg PO DAILY Reported Losartan-Hydrochlorothiazide 100-25 Mg Tab 1 Tab PO DAILY Simvastatin 80 Mg Tab 80 Mg PO DAILY Ventolin Hfa 18 GM Inh (Albuterol Sulfate) 90 Mcg/Act Aer 2 Puff INH Q4-6H PRN Advair Diskus Inh (Fluticasone-Salmeterol Inh) 250-50 Mcg/Blist Aer 1 Puff INH BID Rinse mouth after use. Clonidine (Clonidine HCl) 0.1 Mg Tab 0.1 Mg PO BID Fenofibrate 160 Mg Tab 160 Mg PO DAILY Atenolol 100 Mg Tab 100 Mg PO DAILY Review of Systems Except as stated in HPI: all other systems reviewed are Neg General / Constitutional: No: Fever HENT: No: Sore Throat Physical Exam Narrative GENERAL: 57-year-old male pleasant well-nourished well-developed no acute distress Vital Signs Date Time Temp Pulse Resp B/P (MAP) Pulse Ox O2 Delivery O2 Flow Rate FiO2 03/19/18 09:25 98.6 81 17 138/80 (99) 97 SKIN: Warm and dry. HEAD: Atraumatic. Normocephalic. EYES: Pupils equal and round. No scleral icterus. No injection or drainage. ENT: No nasal bleeding or discharge. Mucous membranes pink and moist. NECK: Trachea midline. No JVD. CARDIOVASCULAR: Regular rate and rhythm. RESPIRATORY: No accessory muscle use. Clear to auscultation. Breath sounds equal bilaterally. GASTROINTESTINAL: Abdomen soft, non-tender, nondistended. Hepatic and splenic margins not palpable. MUSCULOSKELETAL: Extremities without clubbing, cyanosis, or edema. No obvious deformities. NEUROLOGICAL: Cranial nerves III through XII are normal. The motor function is normal all 4 extremities. The patient reports history of left lower extremity weakness on my exam there is no definite motor weakness. PSYCHIATRIC: Appropriate mood and affect; insight and judgment normal. Data Data Last Documented VS Vital Signs Date Time Temp Pulse Resp B/P (MAP) Pulse Ox O2 Delivery O2 Flow Rate FiO2 03/19/18 09:50 Room Air 03/19/18 09:49 16 98 03/19/18 09:25 98.6 81 138/80 (99) Orders Orders Electrocardiogram (03/19/18 09:28) Prothrombin Time / Inr (Pt) (03/19/18 09:28) Act Partial Throm Time (Ptt) (03/19/18 09:28) Complete Blood Count With Diff (03/19/18 09:28) Comprehensive Metabolic Panel (03/19/18:) Creatine Kinase (Cpk) (03/19/18 09:28) Drug Screen, Random Urine (03/19/18 09:28) Troponin I (03/19/18 09:28) Urinalysis - C+S If Indicated (03/19/18 09:28) Ct Brain W/O Iv Contrast(Rout) (03/19/18 09:28) Chest, Single Ap (03/19/18 09:28) Ecg Monitoring (03/19/18:28) Iv Access Insert/Monitor (03/19/18:) Oximetry (03/19/18:28) Sodium Chloride 0.9% Flush (Ns Flush) (03/19/18 09:30) Alcohol (Ethanol) (03/19/18 09:28) Admit Order (Ed Use Only) (03/19/18 ) [place] Operator / Telemetry JAY.Q8H (03/19/18 11:26) Vital Signs (Adult) Q4H (03/19/18 11:26) Diet Heart Healthy (03/19/18 Lunch) Activity Bed Rest (03/19/18 11:26) Labs Laboratory Tests Test 03/19/18 09:45 03/19/18 10:55 White Blood Count 8.5 TH/MM3 Red Blood Count 4.56 MIL/MM3 Hemoglobin 14.0 GM/DL Hematocrit 40.3 % Mean Corpuscular Volume 88.2 FL Mean Corpuscular Hemoglobin 30.7 PG Mean Corpuscular Hemoglobin Concent 34.8 % Red Cell Distribution Width 12.2 % Platelet Count 282 TH/MM3 Mean Platelet Volume 9.5 FL Neutrophils (%) (Auto) 76.1 % Lymphocytes (%) (Auto) 12.1 % Monocytes (%) (Auto) 7.7 % Eosinophils (%) (Auto) 3.5 % Basophils (%) (Auto) 0.6 % Neutrophils # (Auto) 6.4 TH/MM3 Lymphocytes # (Auto) 1.0 TH/MM3 Monocytes # (Auto) 0.7 TH/MM3 Eosinophils # (Auto) 0.3 TH/MM3 Basophils # (Auto) 0.1 TH/MM3 CBC Comment DIFF FINAL Differential Comment Prothrombin Time 10.6 SEC Prothromb Time International Ratio 1.0 RATIO Activated Partial Thromboplast Time 23.8 SEC Blood Urea Nitrogen 18 MG/DL Creatinine 1.00 MG/DL Random Glucose 112 MG/DL Total Protein 8.0 GM/DL Albumin 3.5 GM/DL Calcium Level 9.1 MG/DL Alkaline Phosphatase 77 U/L Aspartate Amino Transf (AST/SGOT) 57 U/L Alanine Aminotransferase (ALT/SGPT) 64 U/L Total Bilirubin 0.7 MG/DL Sodium Level 141 MEQ/L Potassium Level 3.8 MEQ/L Chloride Level 104 MEQ/L Carbon Dioxide Level 29.1 MEQ/L Anion Gap 8 MEQ/L Estimat Glomerular Filtration Rate 77 ML/MIN Total Creatine Kinase 181 U/L Troponin I LESS THAN 0.02 NG/ML Ethyl Alcohol Level LESS THAN 3 MG/DL Urine Collection Type CATH Urine Color YELLOW Urine Turbidity CLEAR Urine pH 6.5 Urine Specific [place] 1.020 Urine Protein NEG mg/dL Urine Glucose (UA) NEG mg/dL Urine Ketones NEG mg/dL Urine Occult Blood NEG Urine Nitrite NEG Urine Bilirubin NEG Urine Urobilinogen 0.2 MG/DL Urine Leukocyte Esterase NEG Urine RBC 0-3 /hpf Urine WBC 0-2 /hpf Urine Amorphous Sediment FEW Microscopic Urinalysis Comment CATH-CULT NOT IND Urine Collection Time 10:55 [facility] Medical Decision Making Medical Screen Exam Complete: Yes Emergency Medical Condition: Yes Medical Record Reviewed: Yes Differential Diagnosis ischemic stroke, hemorrhagic stroke, nonspecific musculoskeletal instability, paresthesias, electrolyte imbalance, TIA Narrative Course EKG shows a sinus rhythm at a rate of 79 CBC & BMP Diagram 03/19/18 09:45 Total Protein 8.0, Albumin 3.5, Calcium Level 9.1, Alkaline Phosphatase 77, Aspartate Amino Transf (AST/SGOT) 57 H, Alanine Aminotransferase (ALT/SGPT) 64, Total Bilirubin 0.[address] 03/19/18927 Signed Impressions: Service Date/Time: Monday, March 19, 2018 10:35 - CONCLUSION: 1. Interval evolution of previously noted right parietal white matter lacunar infarct. 2. Senescent changes. 3. No acute intracranial amount a period Zana Guevara MD Chest X-Ray 03/19/18927 Signed Impressions: Service Date/Time: Monday, March 19, 2018 10:04 - CONCLUSION: No acute cardiopulmonary abnormality is identified. Charanjit Weber MD With the dysarthria yesterday evening and the inability to ambulate yesterday the presentation is concerning for TIA. d/w Dr Lowery for [facility] Diagnosis Primary Impression: TIA (transient ischemic attack) Qualified Codes: G45.9 - Transient cerebral ischemic attack, unspecified Admitting Information Admitting Physician Requests: Observation Enrique Baron MD March 19, 2018 09:42
[2018-03-19 09:49] VITALS: RESP 16; O2SAT 98
[2018-03-19 09:59] LABS: AUTOMATED NEUTROPHIL # 6.4 TH/MM3 (1.8-7.7); BASOPHIL # 0.1 TH/MM3 (0-0.2); BASOPHIL % 0.6 % (0.0-2.0); EOSINOPHIL # 0.3 TH/MM3 (0-0.4); EOSINOPHIL % 3.5 % (0.0-4.0); HEMATOCRIT 40.3 % (39.0-51.0); LYMPH % 12.1 % (9.0-44.0); MEAN CELL VOLUME 88.2 FL (80.0-100.0); MEAN CORPUSCULAR HEMOGLOBIN 30.7 PG (27.0-34.0); MEAN CORPUSCULAR HGB CONC 34.8 % (32.0-36.0); MEAN PLATELET VOLUME 9.5 FL (7.0-11.0); MONO % 7.7 % (0.0-8.0); MONOCYTE # 0.7 TH/MM3 (0-0.9); NEUT % 76.1 % (16.0-70.0); PLATELET COUNT 282 TH/MM3 (150-450); RED BLOOD COUNT 4.56 MIL/MM3 (4.50-5.90); RED CELL DISTRIBUTION WIDTH 12.2 % (11.6-17.2); WHITE BLOOD COUNT 8.5 TH/MM3 (4.0-11.0)
[2018-03-19 10:16] LABS: CHLORIDE 104 MEQ/L (98-107); SODIUM (NA) 141 MEQ/L (136-145)
[2018-03-19 10:20] LABS: CALCIUM 9.1 MG/DL (8.5-10.1)
--- NOTE | 2018-03-19 10:20 | RADRPT ---
EXAM DATE/TIME: 03/19/2018 10:04 [facility] COMPARISON: No previous studies available for comparison. INDICATIONS : Dizziness, numbness and tingling in hands. MEDICAL HISTORY : Hypertension. Stroke. SURGICAL HISTORY : Cholecystectomy. loop recorder ENCOUNTER: Initial ACUITY: 1 day PAIN SCORE: 0/10 LOCATION: Bilateral chest FINDINGS: Portable AP view of the chest demonstrates cardiac silhouette size at the upper limits for normal. Lo op recorder overlies the left chest. EKG lines also overlie the chest. Lungs are mildly underinflate d. No effusion, consolidation, or pneumothorax is identified. Bones and soft tissues demonstrate no a cute finding. There are old healed bilateral clavicle fractures. CONCLUSION: No acute cardiopulmonary abnormality is identified. Charanjit Weber MD on March 19, 2018 at 10:16 Board Certified Radiologist. This report was verified electronically.
[2018-03-19 10:21] LABS: ALBUMIN 3.5 GM/DL (3.4-5.0); BICARBONATE 29.1 MEQ/L (21.0-32.0); BLOOD UREA NITROGEN 18 MG/DL (7-18); GLUCOSE,RANDOM 112 MG/DL (74-106)
[2018-03-19 10:24] LABS: ALT (GPT) 64 U/L (12-78); AST (GOT) 57 U/L (15-37); GLOMERULAR FILTRATION RATE 77 ML/MIN (>89)
[2018-03-19 10:25] LABS: TOTAL BILIRUBIN ADULT 0.7 MG/DL (0.2-1.0)
[2018-03-19 10:27] LABS: ALKALINE PHOSPHATASE 77 U/L (45-117)
[2018-03-19 10:29] LABS: PROTHROMBIN TIME - PATIENT 10.6 SEC (9.8-11.6); TROPONIN I LESS THAN 0.02 NG/ML (0.02-0.05)
--- NOTE | 2018-03-19 10:51 | RADRPT ---
EXAM DATE/TIME: 03/19/2018 10:35 [facility] COMPARISON: CT BRAIN W/O CONTRAST, December 22, 2017, 7:52. INDICATIONS : Altered mental status. General weakness. RADIATION DOSE: 58.47 CTDIvol (mGy) MEDICAL HISTORY : Cerebrovascular disease. Chronic obstructive pulmonary disease. Congestive heart failure.Hypertension . SURGICAL HISTORY : Cholecystectomy. ENCOUNTER: Initial ACUITY: 1 day PAIN SCALE: 0/10 LOCATION: cranial TECHNIQUE: Multiple contiguous axial images were obtained of the head. Using automated exposure control and adj ustment of the mA and/or kV according to patient size, radiation dose was kept as low as reasonably a chievable to obtain optimal diagnostic quality images. DICOM format image data is available electro nically for review and comparison. FINDINGS: CEREBRUM: Interval evolution of right parietal white matter lacunar infarct. The ventricles are normal for age. Diffuse renal atrophy. No evidence of midline shift, mass lesion, hemorrhage or acute infarction. No extra-axial fluid collections are seen. POSTERIOR FOSSA: The cerebellum and brainstem are intact. The 4th ventricle is midline. The cerebellopontine angle i s unremarkable. EXTRACRANIAL: The visualized portion of the orbits is intact. SKULL: The calvaria is intact. No evidence of skull fracture. CONCLUSION: 1. Interval evolution of previously noted right parietal white matter lacunar infarct. 2. Senescent changes. 3. No acute intracranial amount a period Zana Guevara MD on March 19, 2018 at 10:48 Board Certified Radiologist. This report was verified electronically.
[2018-03-19 11:04] LABS: BILIRUBIN, URINE NEG (NEG); BLOOD, URINE NEG (NEG); GLUCOSE,URINE NEG (NEG); KETONE, URINE NEG (NEG); NITRITE,URINE NEG (NEG); PH, URINE 6.5 (5.0-8.5); URINE COLOR YELLOW (YELLW/STRAW); URINE LEUKOCYTE ESTERASE NEG (NEG)
[2018-03-19 11:15] LABS: RBC, URINE 0-3 /hpf (0-3)
[2018-03-19 11:16] LABS: AMORPHOUS SEDIMENT, URINE FEW; WBC, URINE 0-2 /hpf (0-5)
[2018-03-19 12:39] VITALS: BP 133/67
[2018-03-19] MEDS ORDERED: DEXTROSE 50% IN WATER 50 ML VIAL(D50) IV PUSH PRN (14:30)
[2018-03-19] MEDS ORDERED: GLUCAGON 1 MG/ML VIAL OTHER PRN (14:30)
[2018-03-19] MEDS ORDERED: SODIUM CHLORIDE 0.9% FLUSH 10 ML FLUSH IV FLUSH PRN (14:30)
[2018-03-19] MEDS ORDERED: ALBUTEROL SULFATE 90 MCG/ACT HFA 8 GM INHALER INH PRN (15:15)
--- NOTE | 2018-03-19 15:21 | HHI.HP ---
[facility] Service [facility] Primary Care Physician Jame Connor MD Admission Diagnosis TIA Diagnoses: Chief Complaint: Left leg with numbness and tingling Travel History International Travel<30 Days: No Contact w/Intl Traveler <30 Da: No Traveled to Known Affected Are: No History of Present Illness This patient is a 57-year-old gentleman who had a significant infarct 12/2017 which was both in ischemic and hemorrhagic. Patient recently returned back to work March 06 and noted that he had acute onset of left lower extremity weakness which was similar to previous infarct. Patient says he has been "overdoing it". Patient also has returned to drinking quite a bit of alcohol. Over last night he drinks several whiskey mixed drinks and was unable to speak and the patient says he passed out at the table. He finally made it back to bed and this morning woke up and found his left knee was weak. He noted no chest pain or shortness of breath. He was very wobbly and came to the hospital for further evaluation. His blood pressure has been relatively well controlled. Repeat CT of the head shows improvement compared to prior. At the time of the infarct there was some her red hemorrhagic component. He was evaluated by neurosurgery as well as cardiology and neurology. Implanted loop device was started prior to discharge the patient was not recommended for anticoagulation due to his hemorrhagic component. At this time patient's been recommended for further evaluation and treatment given his symptoms of possible recurrent stroke. There resolved at this time Review of Systems Constitutional: DENIES: Diaphoretic episodes, Fatigue, Fever, Weight gain, Weight loss, Chills, Dizziness, Change in appetite, Night Sweats Endocrine: DENIES: Heat/cold intolerance, Polydipsia, Polyuria, Polyphagia Eyes: DENIES: Blurred vision, Diplopia, Eye inflammation, Eye pain, Vision loss , Photosensitivity, Double Vision Ears, nose, mouth, throat: DENIES: Tinnitus, Hearing loss, Vertigo, Nasal discharge, Oral lesions, Throat pain, Hoarseness, Ear Pain, Running Nose, Epistaxis, Sinus Pain, Toothache, Odynophagia Respiratory: DENIES: Apneas, Cough, Snoring, Wheezing, Hemoptysis, Sputum production, Shortness of breath Cardiovascular: DENIES: Chest pain, Palpitations, Syncope, Dyspnea on Exertion , PND, Lower Extremity Edema, Orthopnea, Claudication Gastrointestinal: DENIES: Abdominal pain, Black stools, Bloody stools, Constipation, Diarrhea, Nausea, Vomiting, Difficulty Swallowing, Anorexia Genitourinary: DENIES: Sexual dysfunction, Urinary frequency, Urinary incontinence, Urgency, Hematuria, Dysuria, Nocturia, Penile Discharge, Testicular Pain, Testicular Swelling Musculoskeletal: DENIES: Joint pain, Muscle aches, Stiffness, Joint Swelling, Back pain, Neck pain Integumentary: DENIES: Abnormal pigmentation, Nail changes, Pruritus, Rash Hematologic/lymphatic: DENIES: Bruising, Lymphadenopathy Immunologic/allergic: DENIES: Eczema, Urticaria Neurologic: COMPLAINS OF: Localized weakness, Tremor, DENIES: Abnormal gait, Headache, Paresthesias, Seizures, Speech Problems, Poor Balance Psychiatric: DENIES: Anxiety, Confusion, Mood changes, Depression, Hallucinations, Agitation, Suicidal Ideation, Homicidal Ideation, Delusions Past Family Social History Past Medical History Hypertension History of stroke 2017, hyperlipidemia COPD Past Surgical History Tonsillectomy Cholecystectomy Loop recorder 12/23/2017 Reported Medications Reviewed in the EMR, nothing new Allergies: Coded Allergies: No Known Allergies (Verified Allergy, Unknown, 03/19/18) Active Ordered Medications Reviewed in the EMR Social History Alcohol daily denies employed [employer] independent with ADLs Physical Exam Vital Signs Vital Signs Date Time Temp Pulse Resp B/P (MAP) Pulse Ox O2 Delivery O2 Flow Rate FiO2 03/19/18 12:39 69 17 133/67 (89) 98 03/19/18 09:50 Room Air 03/19/18 09:49 16 98 Room Air 03/19/18 09:25 98.6 81 17 138/80 (99) 97 Physical Exam GENERAL: This is a well-nourished, well-developed patient, in no apparent distress. SKIN: No rashes, ecchymoses or lesions. Cool and dry. HEAD: Atraumatic. Normocephalic. No temporal or scalp tenderness. EYES: Pupils equal round and reactive. Extraocular motions intact. No scleral icterus. No injection or drainage. ENT: Nose without bleeding, purulent drainage or septal hematoma. Throat without erythema, tonsillar hypertrophy or exudate. Uvula midline. Airway patent. NECK: Trachea midline. No JVD or lymphadenopathy. Supple, nontender, no meningeal signs. CARDIOVASCULAR: Regular rate and rhythm without murmurs, gallops, or rubs. RESPIRATORY: Clear to auscultation. Breath sounds equal bilaterally. No wheezes , rales, or rhonchi. GASTROINTESTINAL: Abdomen soft, non-tender, nondistended. No hepato-splenomegaly , or palpable masses. No guarding. MUSCULOSKELETAL: Left-sided weakness lower extremity, unchanged from previous per patient, otherwise 3 extremities without clubbing, cyanosis, or edema. No joint tenderness, effusion, or edema noted. No calf tenderness. Negative Homans sign bilaterally. NEUROLOGICAL: Awake and alert. Cranial nerves II through XII intact. Motor and sensory grossly within normal limits. Five out of 5 muscle strength in all muscle groups. Normal speech. Laboratory Laboratory Tests Test 03/19/18 09:45 03/19/18 10:55 White Blood Count 8.5 Red Blood Count 4.56 Hemoglobin 14.0 Hematocrit 40.3 Mean Corpuscular Volume 88.2 Mean Corpuscular Hemoglobin 30.7 Mean Corpuscular Hemoglobin Concent 34.8 Red Cell Distribution Width 12.2 Platelet Count 282 Mean Platelet Volume 9.5 Neutrophils (%) (Auto) 76.1 Lymphocytes (%) (Auto) 12.1 Monocytes (%) (Auto) 7.7 Eosinophils (%) (Auto) 3.5 Basophils (%) (Auto) 0.6 Neutrophils # (Auto) 6.4 Lymphocytes # (Auto) 1.0 Monocytes # (Auto) 0.7 Eosinophils # (Auto) 0.3 Basophils # (Auto) 0.1 CBC Comment DIFF FINAL Differential Comment Prothrombin Time 10.6 Prothromb Time International Ratio 1.0 Activated Partial Thromboplast Time 23.8 Blood Urea Nitrogen 18 Creatinine 1.00 Random Glucose 112 Total Protein 8.0 Albumin 3.5 Calcium Level 9.1 Alkaline Phosphatase 77 Aspartate Amino Transf (AST/SGOT) 57 Alanine Aminotransferase (ALT/SGPT) 64 Total Bilirubin 0.7 Sodium Level 141 Potassium Level 3.8 Chloride Level 104 Carbon Dioxide Level 29.1 Anion Gap 8 Estimat Glomerular Filtration Rate 77 Total Creatine Kinase 181 Troponin I LESS THAN 0.02 Ethyl Alcohol Level LESS THAN 3 Urine Collection Type CATH Urine Color YELLOW Urine Turbidity CLEAR Urine pH 6.5 Urine Specific [place] 1.020 Urine Protein NEG Urine Glucose (UA) NEG Urine Ketones NEG Urine Occult Blood NEG Urine Nitrite NEG Urine Bilirubin NEG Urine Urobilinogen 0.2 Urine Leukocyte Esterase NEG Urine RBC 0-3 Urine WBC 0-2 Urine Amorphous Sediment FEW Microscopic Urinalysis Comment CATH-CULT NOT IND Urine Collection Time 10:55 Urine Opiates Screen NEG Urine Barbiturates Screen NEG Urine Amphetamines Screen NEG Urine Benzodiazepines Screen NEG Urine Cocaine Screen NEG Urine Cannabinoids Screen POS Result Diagram: 03/19/[id number] Imaging Last Impressions Head CT 03/19/18927 Signed Impressions: Service Date/Time: Monday, March 19, 2018 10:35 - CONCLUSION: 1. Interval evolution of previously noted right parietal white matter lacunar infarct. 2. Senescent changes. 3. No acute intracranial amount a period Zana Guevara MD Chest X-Ray 03/19/18927 Signed Impressions: Service Date/Time: Monday, March 19, 2018 10:04 - CONCLUSION: No acute cardiopulmonary abnormality is identified. MD Bright Nami VTE Risk Assessment Caprini VTE Risk Assessment: No/Low Risk (score <= 1) Caprini Risk Assessment Model Point Value = 1 Point Value = 2 Point Value = 3 Point Value = 5 Age 41-60 Minor surgery BMI > 25 kg/m2 Swollen legs Varicose veins or History of unexplained or recurrent spontaneous Oral contraceptives or hormone replacement Sepsis (< 1 month) Serious lung disease, including pneumonia (< 1 month) Abnormal pulmonary function Acute myocardial infarction Congestive heart failure (< 1 month) History of inflammatory bowel disease Medical patient at bed rest Age 61-74 Arthroscopic surgery Major open surgery (> 45 min) Laparoscopic surgery (> 45 min) Malignancy Confined to bed (> 72 hours) Immobilizing plaster cast Central venous access Age >= 75 History of VTE Family history of VTE Factor V Leiden Prothrombin [id number] Lupus anticoagulant Anticardiolipin antibodies Elevated serum homocysteine Heparin-induced thrombocytopenia Other congenital or acquired thrombophilia Stroke (< 1 month) Elective arthroplasty Hip, pelvis, or leg fracture Acute spinal cord injury (< 1 month) Prophylaxis Regimen Total Risk Factor Score Risk Level Prophylaxis Regimen 0-1 Low Early ambulation 2 Moderate Order ONE of the following: *Sequential Compression Device (SCD) *Heparin 5000 units SQ BID 3-4 Higher Order ONE of the following medications: *Heparin 5000 units SQ TID *Enoxaparin/Lovenox 40 mg SQ daily (WT < 150 kg, CrCl > 30 mL/min) *Enoxaparin/Lovenox 30 mg SQ daily (WT < 150 kg, CrCl > 10-29 mL/min) *Enoxaparin/Lovenox 30 mg SQ BID (WT < 150 kg, CrCl > 30 mL/min) AND/OR *Sequential Compression Device (SCD) 5 or more Highest Order ONE of the following medications: *Heparin 5000 units SQ TID (Preferred with Epidurals) *Enoxaparin/Lovenox 40 mg SQ daily (WT < 150 kg, CrCl > 30 mL/min) *Enoxaparin/Lovenox 30 mg SQ daily (WT < 150 kg, CrCl > 10-29 mL/min) *Enoxaparin/Lovenox 30 mg SQ BID (WT < 150 kg, CrCl > 30 mL/min) AND *Sequential Compression Device (SCD) Assessment and Plan Problem List: (1) Numbness and tingling ICD Code: R20.0 - Anesthesia of skin; R20.2 - Paresthesia of skin Plan: Overall seems to be improved Likely multifactorial and overdoing it with underlying weakness from previous infarct, which was both hemorrhagic and ischemic. Neurosurgery and neurology did see the patient. An implanted loop recorder was done and the patient was deemed not a candidate for anticoagulation due to the infarct being also hemorrhagic Follow-up MRI If no change likely discharge home in am, we will need to discuss anticoagulation CTA neck and head done 12/2017 which were relatively unremarkable SARKIS unremarkable 12/2017 with good EF no source of embolic phenomenon Check B12 (2) HTN (hypertension) ICD Code: I10 - Essential (primary) hypertension Status: Chronic Plan: Controlled on current regimen Continue clonidine, atenolol Continue losartan/hydrochlorothiazide Assessment and Plan Continue bronchodilators for COPD and famotidine Discussed Condition With Patient, YAEL PEDRAZA, spouse Talia Lowery MD March 19, 2018 15:21
[2018-03-19 16:00] VITALS: BP 142/78; PULSE 77; RESP 19; TEMP 97.4; O2SAT 95
[2018-03-19] MEDS: ASPIRIN 325 MG TAB PO SCH (16:53)
[2018-03-19] MEDS: INSULIN ASPART SUPPLEMENTAL SCALE SQ SCH ×2 (16:53→20:32)
--- NOTE | 2018-03-19 17:21 | RADRPT ---
EXAM DATE/TIME: 03/19/2018 16:39 [place] COMPARISON: CT BRAIN W/O CONTRAST, March 19, 2018, 10:35. INDICATIONS : TIA. Tingling and weakness all over body. MEDICAL HISTORY : Cerebrovascular disease. Hypertension. Emphysema. COPD. SURGICAL HISTORY : Cholecystectomy. Elbow surgery. Loop recorder. ENCOUNTER: Subsequent ACUITY: 1 day PAIN SCORE: 0/10 LOCATION: head. TECHNIQUE: Multiplanar, multisequence MRI of the brain was performed without contrast. FINDINGS: CEREBRUM: The ventricles are normal for age. No evidence of midline shift, mass lesion, hemorrhage. Small foc al acute infarct involving the right deep mid parietal lobe. This is adjacent to the right lateral ve ntricle. No extraaxial fluid collections are seen. The pituitary gland and suprasellar cistern are n ormal in configuration. WHITE MATTER: No significant signal abnormalities are seen in the white matter. POSTERIOR FOSSA: The cerebellum and brainstem are intact. The 4th ventricle is midline. The cerebellopontine angle is unremarkable. The cerebellar tonsils are normal in position. DIFFUSION IMAGING: There is restricted diffusion involving the right deep mid parietal lobe adjacent to the right latera l ventricle consist with a focal area of acute infarction. EXTRACRANIAL: The visualized portions of the orbits and paranasal sinuses are unremarkable. CONCLUSION: Small focal area of acute infarction involving the right mid parietal lobe adjacent to the right late ral ventricle. Chuy Sprague MD on March 19, 2018 at 17:16 Board Certified Radiologist. This report was verified electronically.
[2018-03-19 20:00] VITALS: BP 150/96; PULSE 74; RESP 20; TEMP 96.8; O2SAT 95
[2018-03-19] MEDS: SODIUM CHLORIDE 0.9% FLUSH 10 ML FLUSH IV FLUSH SCH (20:22)
[2018-03-19] MEDS: cloNIDine HCL 0.1 MG TAB PO SCH (20:22)
[2018-03-19] MEDS: FAMOTIDINE 20 MG TAB PO SCH (20:22)
[2018-03-19] MEDS: BUDESONIDE-FORMOTEROL 160/4.5 MCG INHALER INH SCH (20:28)
[2018-03-19 21:30] VITALS: BP 129/77; PULSE 71
[2018-03-19] MEDS ORDERED: MELATONIN 5 MG TAB PO ONE (22:00)
[2018-03-20] VITALS (7 sets, daily range): BP systolic 120–172; BP diastolic 68–102; PULSE 67–78; RESP 18–20; TEMP 96.1–97.8; O2SAT 95–97
[2018-03-20] MEDS: INSULIN ASPART SUPPLEMENTAL SCALE SQ SCH ×4 (08:00→20:12)
[2018-03-20] MEDS: ATENOLOL 50 MG TAB PO SCH (08:24)
[2018-03-20] MEDS: ATORVASTATIN 40 MG TAB PO SCH (08:24)
[2018-03-20] MEDS: cloNIDine HCL 0.1 MG TAB PO SCH ×2 (08:25→20:07)
[2018-03-20] MEDS: FAMOTIDINE 20 MG TAB PO SCH ×2 (08:25→20:13)
[2018-03-20] MEDS: LOSARTAN 50 MG TAB PO SCH (08:25)
[2018-03-20] MEDS: BUDESONIDE-FORMOTEROL 160/4.5 MCG INHALER INH SCH ×2 (08:26→20:11)
[2018-03-20] MEDS: ASPIRIN 325 MG TAB PO SCH (08:26)
[2018-03-20] MEDS: SODIUM CHLORIDE 0.9% FLUSH 10 ML FLUSH IV FLUSH SCH ×2 (08:26→20:22)
[2018-03-20] MEDS: HYDROCHLOROTHIAZIDE 25 MG TAB PO SCH (08:31)
[2018-03-20] MEDS ORDERED: NON-FORMULARY DRUG (Losartan-Hydrochlorothiazide 1 TAB) PO SCH (09:00)
[2018-03-20] MEDS ORDERED: HYDROCHLOROTHIAZIDE 25 MG TAB PO SCH (09:00)
[2018-03-20] MEDS ORDERED: FENOFIBRATE 145 MG TAB PO SCH (09:00)
[2018-03-20 10:43] LABS: CHOLESTEROL/ HDL RATIO 3.88 RATIO; HDL CHOLESTEROL 31.9 MG/DL (40.0-60.0)
--- NOTE | 2018-03-20 11:12 | HHI.PR ---
Subjective Remarks Patient seen in follow-up for acute stroke Aspirin started yesterday. Neurology consult pending Patient back to baseline clinically Objective Vitals Vital Signs Date Time Temp Pulse Resp B/P (MAP) Pulse Ox O2 Delivery O2 Flow Rate FiO2 03/20/18 08:00 97.8 78 18 145/87 (106) 95 03/20/18 04:00 96.1 73 20 132/85 (101) 96 03/20/18 00:00 96.8 77 20 120/68 (85) 96 03/19/18 21:30 71 129/77 (94) 03/19/18 20:00 96.8 74 20 150/96 (114) 95 03/19/18 16:00 97.4 77 19 142/78 (99) 95 03/19/18 12:39 69 17 133/67 (89) 98 I/O 03/19/18 03/19/18 03/19/18 03/20/18 03/20/18 03/20/18 07:00 15:00 23:00 07:00 15:00 23:00 Intake Total 760 ml 240 ml Balance 760 ml 240 ml Intake Oral 760 ml 240 ml # Voids 3 # Bowel Movements 1 Result Diagram: 03/19/1845 03/19/18944 Imaging Last Impressions Head CT 03/19/18927 Signed Impressions: Service Date/Time: Monday, March 19, 2018 10:35 - CONCLUSION: 1. Interval evolution of previously noted right parietal white matter lacunar infarct. 2. Senescent changes. 3. No acute intracranial amount a period Zana Guevara MD Chest X-Ray 03/19/18927 Signed Impressions: Service Date/Time: Monday, March 19, 2018 10:04 - CONCLUSION: No acute cardiopulmonary abnormality is identified. Charanjit Weber MD Brain MRI 03/19/18 0000 Signed Impressions: Service Date/Time: Monday, March 19, 2018 16:39 - CONCLUSION: Small focal area of acute infarction involving the right mid parietal lobe adjacent to the right lateral ventricle. Chuy Sprague MD Objective Remarks GENERAL: This is a well-nourished, well-developed patient, in no apparent distress. CARDIOVASCULAR: Regular rate and rhythm without murmurs, gallops, or rubs. RESPIRATORY: Clear to auscultation. Breath sounds equal bilaterally. No wheezes , rales, or rhonchi. GASTROINTESTINAL: Abdomen soft, non-tender, nondistended. Normal active bowel sounds MUSCULOSKELETAL: Minimal left-sided weakness which is residual from previous stroke, extremities without clubbing, cyanosis, or edema. NEURO: Alert & Oriented x4 to person, place, time, situation. Moves all ext x4 A/P Problem List: (1) Numbness and tingling ICD Code: R20.0 - Anesthesia of skin; R20.2 - Paresthesia of skin Plan: Likely secondary to acute parietal stroke Some left-sided residual weakness from previous stroke but currently at baseline Continue aspirin and blood pressure control Previous workup reviewed (2) HTN (hypertension) ICD Code: I10 - Essential (primary) hypertension Status: Chronic Plan: Controlled on current regimen Continue clonidine, atenolol Continue losartan/hydrochlorothiazide Discharge Planning Discharge home pending neurology consult Outpatient PT Talia Lowery MD March 20, 2018 11:12
[2018-03-20 12:27] LABS: HEMOGLOBIN A1C 5.9 % (4.3-6.0)
--- NOTE | 2018-03-20 15:23 | EKG ---
Date Performed: 03/19/2018 Time Performed: 09:38:37 PTAGE: 57 years EKG: Sinus rhythm NORMAL ECG PREVIOUS TRACING : 12/23/2017 13.31 Since the prior tracing, the EKG no longer has criteria for an anteroseptal infarct. DOCTOR: Giuliana Padilla Interpretating Date/Time 03/20/2018 15:23:22
[2018-03-20] MEDS ORDERED: ZOLPIDEM TARTRATE 10 MG TAB PO PRN (16:00)
[2018-03-20] MEDS ORDERED: GLUCAGON 1 MG/ML VIAL OTHER PRN (22:15)
[2018-03-20] MEDS ORDERED: DEXTROSE 50% IN WATER 50 ML VIAL(D50) IV PUSH PRN (22:15)
[2018-03-20] MEDS ORDERED: SODIUM CHLORIDE 0.9% FLUSH 10 ML FLUSH IV FLUSH PRN (22:15)
--- NOTE | 2018-03-20 22:30 | MB ---
cc: Gee Borges MD, PhD Gee Borges MD PhD DATE: 03/20/2018 REASON FOR CONSULTATION: Stroke. HISTORY OF PRESENT ILLNESS: This is a 57-year-old man who has a history of previous hemorrhagic stroke in December who was stable until yesterday, developed acute onset of left leg weakness and clumsiness. He had no symptoms in the arm. No slurred speech. He feels better today with near normal strength, but still slightly clumsy left leg. PAST MEDICAL HISTORY: History of recent hemorrhagic stroke in December. At that time, he was evaluated with a transesophageal echocardiogram, EF of 60-65%, left atrial size was normal. Right atrium normal. Atrial appendage was not well visualized. Atrial septum was normal with no PFO. Mitral valve was normal. Aortic valve was normal. Tricuspid valve normal. He had a neck CT angiogram which showed no significant carotid stenosis. Head CTA at that time was normal. Brain MRI revealed small acute infarct along the posterior insular cortex with small amount of hemorrhage. The patient has a loop recorder and so far showing no atrial fibrillation. He has been on low-dose Aspirin 81 mg daily. He has a history also of hyperlipidemia, COPD, hypertension, cholecystectomy, tonsillectomy. NEUROLOGICAL PHYSICAL EXAMINATION: VITAL SIGNS: Blood pressure 172/102, pulse 69 regular, respiratory rate is 20, temperature 96.4 degrees. NEUROLOGICAL EXAM: Higher cortical functions are normal: Cranial nerves 2-12, normal. Motor exam: He has 5/5 strength in both upper and lower extremities. There is no drift. Fine motor skills are normal. IMAGING STUDIES: CT brain shows interval evolution of previously noted right parietal infarct, senescent changes, no acute change. MRI brain shows a very small acute infarct in the mid right parietal lobe area. LABORATORY DATA: White count 8500, hemoglobin 14, hematocrit 40.3%, platelet count 282,000. Sodium is 141, potassium 3.8, chloride 104, CO2 of 29, BUN is 18, creatinine 1, GFR 77, glucose 112, AST 57, ALT 64, cholesterol 124, LDL 45, HDL 31.9. His PT 10.6, INR 1, APTT 23.8. Tox screen positive for cannabis. IMAGING STUDIES His EKG is normal sinus rhythm. IMPRESSION: Small recurrent right hemisphere stroke. RECOMMENDATIONS: We will add Plavix 75 mg daily. Stop aspirin in 3 days. Followup on echocardiogram. Continue to monitor loop recorder to be sure there is no A-fib. The patient has already undergone a transesophageal echo last visit, which was normal. He had a complete hypercoagulable workup as well last visit, which included a lupus anticoagulant which was not detected. Protein C activity normal at 145, APC resistance 5.0 which was negative, protein S activity 161 normal, antithrombin III 100 which is normal range, Factor V Leiden mutation was negative. Factor VIII activity high at 218. Gee Borges MD, PhD FLOR/ , 10:10 PM , 10:29 PM
[2018-03-21] VITALS: BP 152/86; PULSE 60; RESP 20; TEMP 98.6; O2SAT 96
[2018-03-21 04:00] VITALS: BP 156/79; PULSE 71; RESP 20; TEMP 97.6; O2SAT 96
[2018-03-21] MEDS: cloNIDine HCL 0.1 MG TAB PO SCH (05:08)
[2018-03-21] MEDS ORDERED: FAMO20TA2 PO (07:39)
[2018-03-21] MEDS ORDERED: ZOLP10TA3 PO (07:40)
[2018-03-21] MEDS ORDERED: AMLO5TAB2 PO (07:41)
[2018-03-21] MEDS ORDERED: ASPI-516 CHEW (07:42)
[2018-03-21] MEDS ORDERED: SYMB160A INH (07:43)
[2018-03-21 07:59] VITALS: BP 130/81; PULSE 68; RESP 16; TEMP 96.4; O2SAT 96
[2018-03-21] MEDS: INSULIN ASPART SUPPLEMENTAL SCALE SQ SCH ×2 (08:00→12:00)
[2018-03-21] MEDS ORDERED: INSULIN ASPART SUPPLEMENTAL SCALE SQ SCH (08:00)
[2018-03-21] MEDS ORDERED: amLODIPine BESYLATE 5 MG TAB PO SCH (09:00)
[2018-03-21] MEDS ORDERED: ASPIRIN 81 MG CHEW TAB PO SCH (09:00)
[2018-03-21] MEDS ORDERED: CLOPIDOGREL 75 MG TAB PO SCH (09:00)
[2018-03-21] MEDS ORDERED: FENOFIBRATE 145 MG TAB PO SCH (09:00)
[2018-03-21] MEDS ORDERED: SODIUM CHLORIDE 0.9% FLUSH 10 ML FLUSH IV FLUSH SCH (09:00)
[2018-03-21] MEDS: HYDROCHLOROTHIAZIDE 25 MG TAB PO SCH (09:06)
[2018-03-21] MEDS: ATENOLOL 50 MG TAB PO SCH (09:07)
[2018-03-21] MEDS: ATORVASTATIN 40 MG TAB PO SCH (09:07)
[2018-03-21] MEDS: FAMOTIDINE 20 MG TAB PO SCH (09:08)
[2018-03-21] MEDS: LOSARTAN 50 MG TAB PO SCH (09:09)
[2018-03-21] MEDS: BUDESONIDE-FORMOTEROL 160/4.5 MCG INHALER INH SCH (09:09)
[2018-03-21] MEDS: SODIUM CHLORIDE 0.9% FLUSH 10 ML FLUSH IV FLUSH SCH (09:12)
[2018-03-21 12:00] VITALS: BP 134/85; PULSE 68; RESP 16; TEMP 96.5; O2SAT 97
[2018-03-21] MEDS ORDERED: PLAV75TA29 PO (12:04)
[2018-03-21] MEDS ORDERED: ATOR40TA16 PO (12:04)
--- NOTE | 2018-03-21 12:04 | HHI.DCPOC ---
Discharge Care Plan Diagnosis: (1) Numbness and tingling (2) Acute right MCA stroke Goals to Promote Your Health * To prevent worsening of your condition and complications * To maintain your health at the optimal level Directions to Meet Your Goals Take your medications as prescribed Follow your dietary instruction Follow activity as directed Keep your appointments as scheduled Take your immunizations and boosters as scheduled If your symptoms worsen call your PCP, if no PCP go to Urgent Care Center or Emergency Room Smoking is Dangerous to Your Health. Avoid second hand smoke Call the 24-hour hour crisis hotline for domestic abuse at Talia Lowery MD March 21, 2018 12:04
--- NOTE | 2018-03-21 12:06 | HHI.DS ---
Discharge Summary Admission Date March 19, 2018 at 11:27 Discharge Date: March 21, 2018 Admitting Diagnosis TIA (1) Numbness and tingling ICD Code: R20.0 - Anesthesia of skin; R20.2 - Paresthesia of skin (2) HTN (hypertension) ICD Code: I10 - Essential (primary) hypertension Status: Chronic Procedures None Brief History - From Admission This patient is a 57-year-old gentleman who had a significant infarct 12/2017 which was both in ischemic and hemorrhagic. Patient recently returned back to work March 06 and noted that he had acute onset of left lower extremity weakness which was similar to previous infarct. Patient says he has been "overdoing it". Patient also has returned to drinking quite a bit of alcohol. Over last night he drinks several whiskey mixed drinks and was unable to speak and the patient says he passed out at the table. He finally made it back to bed and this morning woke up and found his left knee was weak. He noted no chest pain or shortness of breath. He was very wobbly and came to the hospital for further evaluation. His blood pressure has been relatively well controlled. Repeat CT of the head shows improvement compared to prior. At the time of the infarct there was some her red hemorrhagic component. He was evaluated by neurosurgery as well as cardiology and neurology. Implanted loop device was started prior to discharge the patient was not recommended for anticoagulation due to his hemorrhagic component. At this time patient's been recommended for further evaluation and treatment given his symptoms of possible recurrent stroke. There resolved at this time CBC/BMP: 03/19/18 0945 03/19/18 0945 Significant Findings Laboratory Tests Test 03/19/18 09:45 03/19/18 10:55 03/20/18 05:07 Neutrophils (%) (Auto) 76.1 % (16.0-70.0) Activated Partial Thromboplast Time 23.8 SEC (24.3-30.1) Random Glucose 112 MG/DL (74-106) Aspartate Amino Transf (AST/SGOT) 57 U/L (15-37) Estimat Glomerular Filtration Rate 77 ML/MIN (>89) Troponin I LESS THAN 0.02 NG/ML Urine Cannabinoids Screen POS (NEG) Triglycerides Level 235 MG/DL (42-150) HDL Cholesterol 31.9 MG/DL (40.0-60.0) PE at Discharge GENERAL: This is a well-nourished, well-developed patient, in no apparent distress. CARDIOVASCULAR: Regular rate and rhythm without murmurs, gallops, or rubs. RESPIRATORY: Clear to auscultation. Breath sounds equal bilaterally. No wheezes , rales, or rhonchi. GASTROINTESTINAL: Abdomen soft, non-tender, nondistended. Normal active bowel sounds MUSCULOSKELETAL: Minimal left-sided weakness which is residual from previous stroke, extremities without clubbing, cyanosis, or edema. NEURO: Alert & Oriented x4 to person, place, time, situation. Moves all ext x4 Pt update on day of discharge Patient doing well today. Plan of care and discharge planning discussed with patient, nursing team and spouse at bedside. Hospital Course This patient is a 57-year-old gentleman with recent stroke who came in with symptoms of numbness and tingling again and is found to have a second stroke. Stroke did have some hemorrhagic component and patient was discharged on baby aspirin. This time the patient is recommended for Plavix with the taper of aspirin. Repeat echocardiogram was done. Patient was seen also by neurology in consultation. Symptoms have returned back to baseline at the time of discharge. Pt Condition on Discharge: Good Discharge Disposition: Disch w/ Home Health Serv Discharge Time: <= 30 minutes Discharge Instructions DIET: Follow Instructions for: As Tolerated, No Restrictions Activities you can perform: Regular-No Restrictions Follow up Referrals: Neurology - 05/05/18 PCP Follow-up - 1 Week New Medications: Atorvastatin (Atorvastatin) 40 Mg Tab 40 MG PO DAILY for cva, #31 TAB Clopidogrel (Plavix) 75 Mg Tab 75 MG PO DAILY for cva, #31 TAB Continued Medications: Albuterol 18 GM Inh (Ventolin Hfa 18 GM Inh) 90 Mcg/Act Aer 2 PUFF INH Q4-6H PRN for SHORTNESS OF BREATH, #1 INHALER 0 Refills Amlodipine (Amlodipine) 5 Mg Tab 5 MG PO DAILY for Blood Pressure Management, #30 TAB 0 Refills Aspirin (Aspirin) 81 Mg Chew 81 MG CHEW DAILY, TAB 0 Refills Atenolol (Atenolol) 100 Mg Tab 100 MG PO DAILY for Blood Pressure Management, #30 TAB 0 Refills Budesonide-Formoterol Inh (Symbicort Inh) 160-4.5 Mcg/Act Aero 2 PUFF INH Q12HR, #1 INHALER 0 Refills Clonidine (Clonidine) 0.1 Mg Tab 0.2 MG PO TID for Blood Pressure Management, #60 TAB 0 Refills Famotidine (Famotidine) 20 Mg Tab 20 MG PO DAILY, #60 TAB 0 Refills Fenofibrate (Fenofibrate) 160 Mg Tab 160 MG PO DAILY, #30 TAB 0 Refills Fluticasone-Salmeterol Inh (Advair Diskus Inh) 250-50 Mcg/Blist Aer 1 PUFF INH BID, #1 INHALER 0 Refills Rinse mouth after use. Hydrochlorothiazide (Hydrochlorothiazide) 25 Mg Tab 25 MG PO DAILY for htn, #30 TAB Losartan-Hydrochlorothiazide (Losartan-Hydrochlorothiazide) 100-25 Mg Tab 1 TAB PO DAILY for Blood Pressure Management, #30 TAB 0 Refills Zolpidem (Zolpidem) 10 Mg Tab 10 MG PO HS PRN for INSOMNIA, TAB 0 Refills Discontinued Medications: Simvastatin (Simvastatin) 80 Mg Tab 80 MG PO DAILY for Cholesterol Management, #30 TAB 0 Refills Talia Lowery MD March 21, 2018 12:05
[2018-03-21] MEDS ORDERED: cloNIDine HCL 0.2 MG TAB PO SCH (14:00)
[2018-03-21 16:00] VITALS: BP 142/83; PULSE 74; RESP 18; TEMP 98.7; O2SAT 97
--- NOTE | 2018-03-22 15:25 | ECHRPT ---
Indication: CVA/TIA CONCLUSIONS Normal left ventricular size. Wall thickness is normal. The left ventricular systolic function is normal with an estimated ejection fraction in the range of 55-60%. Technically difficult study with some views off-axis. BP: / HR: Rhythm: MEASUREMENTS (Male / Female) Normal Values Technical Quality:Technically difficult study 2D ECHO LV Diastolic Diameter PLAX 5.5 cm 4.2 - 5.9 / 3.9 - 5.3 cm LV Systolic Diameter PLAX 4.2 cm IVS Diastolic Thickness 1.2 cm 0.6 - 1.0 / 0.6 - 0.9 cm LVPW Diastolic Thickness 1.1 cm 0.6 - 1.0 / 0.6 - 0.9 cm LV Relative Wall Thickness 0.4 DOPPLER Mitral E Point Velocity 69.1 cm/s Mitral A Point Velocity 73.1 cm/s Mitral E to A Ratio 0.9 TR Peak Velocity 252.0 cm/s TR Peak Gradient 25.4 mmHg Right Atrial Pressure 5.0 mmHg Pulmonary Artery Systolic Pressu 30.4 mmHg Right Ventricular Systolic Press 30.4 mmHg FINDINGS LEFT VENTRICLE Normal left ventricular size. Wall thickness is normal. The left ventricular systolic function is normal with an estimated ejection fraction in the range of 55-60%. RIGHT VENTRICLE Normal right ventricular size and systolic function. LEFT ATRIUM The left atrial size is normal. RIGHT ATRIUM The right atrial size is normal. ATRIAL SEPTUM Normal atrial septal thickness without atrial level shunting by limited color doppler interrogation. AORTA The aortic root and proximal ascending aorta are normal in size on limited imaging. MITRAL VALVE Structurally normal mitral valve. No mitral valve stenosis or regurgitation. AORTIC VALVE Trileaflet aortic valve. No aortic valve stenosis or regurgitation. TRICUSPID VALVE Structurally normal tricuspid valve. No tricuspid valve stenosis or regurgitation. PULMONARY VALVE No pulmonary valve regurgitation or stenosis. VESSELS The inferior vena cava is normal in size. PERICARDIUM No pericardial effusion. Allen Mcclendon MD (Electronically Signed) Final Date:22 Mar 2018 15:24
== END 2018-03-21 17:05 | disposition home or self-care (01) ==
LOC: PHED 09:15 → PHEDA 11:27 → PH3B 12:33
PROVIDERS: ADMIT Hospitalist; ATTEND Hospitalist
DX: I63.511 Cerebral infarction due to unspecified occlusion or stenosis of right middle cerebral artery (principal); I10 Essential (primary) hypertension; E78.5 Hyperlipidemia, unspecified; I50.9 Heart failure, unspecified; J44.9 Chronic obstructive pulmonary disease, unspecified; Z79.82 Long term (current) use of aspirin; R53.1 Weakness; R06.83 Snoring; Z86.73 Personal history of transient ischemic attack (TIA), and cerebral infarction without residual deficits
CPT/HCPCS: 70450; 70551; 71045; 80053; 80061; 80307; 81001; 82550; 82607; 82948; 83036; 84484; 85025; 85610; 85730; 93005; 93306; 97162; 97166; 99285; G0378; G8987; G8988; G8989